=== PATIENT | male | born 1965 | race Hispanic/Latino ===

== ENCOUNTER 2017-12-15 05:47 | Day surgery (SDC) | payer MEDICARE ==
[2017-12-14 11:53] VITALS: BP 118/50
[2017-12-14 11:57] LABS: BASOPHILS % (AUTO) 1.7 % (0.0-5.0); EOSINOPHILS % (AUTO) 2.1 % (0.0-8.0); LYMPHOCYTES % (AUTO) 15.5 % (21.0-51.0); MEAN CORPUSCULAR HEMOGLOBIN 27.8 pg (27.0-33.0); MEAN CORPUSCULAR HGB CONC 32.8 g/dL (32.0-36.0); MEAN CORPUSCULAR VOLUME 84.7 fL (79-99); NEUTROPHILS % (AUTO) 73.7 % (40.0-77.0); PLATELET COUNT (AUTO) 262 K/uL (130-400); RED BLOOD CELL COUNT(AUTO) 4.49 MIL/uL (4.50-6.20); RED CELL DISTRIBUTION WIDTH 15.9 % (11.0-15.5)
[2017-12-14 12:09] LABS: POTASSIUM 4.3 mmol/L (3.5-5.1)
[2017-12-14 12:11] LABS: INR 0.98 (0.85-1.15); PARTIAL THROMBOPLASTIN TIME 30.9 SEC (26.3-35.5); PROTHROMBIN TIME 10.3 SEC (9.6-11.6)
[2017-12-14 12:20] LABS: CREATININE 9.2 mg/dL (0.5-1.5)
[2017-12-15] VITALS (8 sets, daily range): BP systolic 124–155; BP diastolic 57–85
[~2017-12-15] VITALS: Ht 175.3 cm; Wt 136.0 kg
[~2017-12-15 05:47] MED LIST: ALBU90AE IH; ASPI-555 PO; ATOR20TA65 PO; BISA5TAB12 PO; BUDE10.2 IH; CALC667C10 PO; CLOP75TA32 PO; FAMO20TA8 PO; FOLI1TAB85 PO; HYDR50CA50 PO; INSU100V3 SQ; INSU100V33 SQ; LOSA50TA25 PO; METO-408 PO; OLAN2.5T29 PO; OXCA300T28 PO; VENL-63 PO
[2017-12-15] MEDS ORDERED: CEFAZOLIN SODIUM 1 GM VIAL IVP PRN (06:00)
[2017-12-15] MEDS ORDERED: SODIUM CHLORIDE 0.9% 1000ML 1,000 ML IV ONE (06:13)
[2017-12-15] MEDS ORDERED: OXCARBAZEPINE 300 MG TAB PO SCH ×2 (07:00→07:30)
[2017-12-15] MEDS ORDERED: LIDOCAINE HCL 1% MDV 50ML VIAL ONE (07:13)
[2017-12-15] MEDS ORDERED: CEFAZOLIN SODIUM 1 GM VIAL ONE (07:13)
[2017-12-15] MEDS ORDERED: BUPIVACAINE/PF 0.25% 50ML VIAL IJ ONE (07:13)
[2017-12-15] MEDS ORDERED: PHARMACY COMMUNICATION MISC SCH (07:30)
[2017-12-15] MEDS ORDERED: MIDAZOLAM HCL 1 MG/ML 2ML VIAL ONE (07:40)
[2017-12-15] MEDS ORDERED: FENTANYL CITRATE PF 50 MCG/1 ML 2ML VIAL ONE (07:40)
[2017-12-15] MEDS ORDERED: OCTYL 2-CYANOACRYLATE 1 EACH TP ONE (08:02)
[2017-12-15] MEDS ORDERED: ACETAMINOPHEN 325 MG TAB PO PRN ×2 (08:30)
[2017-12-15] MEDS ORDERED: ACETAMINOPHEN-CODEINE 300/30MG TAB PO PRN ×2 (08:30)
== END 2017-12-15 10:50 | disposition home or self-care (01) ==
LOC: DAH 05:47
PROVIDERS: ATTEND Internal Medicine Cardiovascular Disease
DX: R55 Syncope and collapse (principal); E11.9 Type 2 diabetes mellitus without complications; E78.5 Hyperlipidemia, unspecified; Z79.82 Long term (current) use of aspirin; Z79.899 Other long term (current) drug therapy; Z88.8 Allergy status to other drugs, medicaments and biological substances
CPT/HCPCS: 33282; 36415; 80048; 82948; 85025; 85610; 85730; 93005; A4606; C1764; J0690; J2250; J3010; J3490 ×2; J7030; 99156; 99157

== ENCOUNTER 2018-01-16 13:51 | Inpatient (IN) | payer MEDICARE ==
[~2018-01-16] VITALS: Ht 172.7 cm; Wt 135.9 kg
[2018-01-16] MEDS ORDERED: ACETAMINOPHEN EXTRA STRENGTH 500 MG TABLET ONE (14:08)
[2018-01-16 14:26] LABS: BILIRUBIN,TOTAL 1.9 mg/dL (0.2-1.0)
[2018-01-16] MEDS ORDERED: ZOSYN 3.375GM+NS 50ML 50 ML IV ONE (14:32)
[2018-01-16 14:33] LABS: APPEARANCE,URINE Clear (CLEAR); BILIRUBIN,URINE Negative (NEGATIVE); COLOR,URINE Yellow (YELLOW); GLUCOSE, URINE (UA) 500 mg/dL (NEGATIVE); KETONES,URINE Negative (NEGATIVE); LEUKOCYTE ESTERASE ,URINE Trace (NEGATIVE); NITRATE,URINE Negative (NEGATIVE); OCCULT BLOOD,URINE Small (NEGATIVE); PH,URINE >=9.0 (5.0-8.0); PROTEIN,URINE 300 (NEGATIVE); UROBILINOGEN,URINE 0.2 mg/dL (0.2-1.0)
[2018-01-16 14:33] LABS: BASOPHILS % (AUTO) 0.5 % (0.0-5.0); EOSINOPHILS % (AUTO) 0.9 % (0.0-8.0); HEMATOCRIT 34.8 % (42-54); LYMPHOCYTES % (AUTO) 7.4 % (21.0-51.0); MEAN CORPUSCULAR HEMOGLOBIN 27.5 pg (27.0-33.0); MEAN CORPUSCULAR HGB CONC 33.3 g/dL (32.0-36.0); MEAN CORPUSCULAR VOLUME 82.5 fL (79-99); MONOCYTES % (AUTO) 6.4 % (3.0-13.0); NEUTROPHILS % (AUTO) 84.8 % (40.0-77.0); PLATELET COUNT (AUTO) 256 K/uL (130-400); RED BLOOD CELL COUNT(AUTO) 4.21 MIL/uL (4.50-6.20); RED CELL DISTRIBUTION WIDTH 15.7 % (11.0-15.5); WHITE BLOOD COUNT (AUTO) 21.7 K/uL (4.8-10.8)
[2018-01-16 14:44] LABS: INR 0.95 (0.85-1.15); PARTIAL THROMBOPLASTIN TIME 32.3 SEC (26.3-35.5)
[2018-01-16 14:44] LABS: BACTERIA,URINE Rare /HPF (None Seen); YEAST,URINE BUDDING Rare /HPF (None Seen)
[2018-01-16 14:47] LABS: ABG BASE EXCESS -0.3 mmol/L (-2.0-3.0); ABG HCO3 23.6 mmol/L (21.0-28.0); ABG OXYGEN SATURATION 88.9 % (95.0-99.0); ABG PCO2 36 mmHg (35-48)
[2018-01-16 14:49] LABS: ALANINE AMINOTRANSFERASE 27 U/L (12-78); ALBUMIN 3.7 g/dL (3.5-5.0); ASPARTATE AMINOTRANSFERASE 19 U/L (10-37); CARBON DIOXIDE 26 mmol/L (21-32); CHLORIDE 96 mmol/L (101-111); GLOMERULAR FILTR. RATE CALC 6 mL/min (>60); GLUCOSE,RANDOM 192 mg/dL (70-105); MYOGLOBIN 480 ng/mL (10-92); POTASSIUM 4.9 mmol/L (3.5-5.1); SODIUM SERUM 136 mmol/L (136-145); TOTAL PROTEIN, SERUM 7.8 g/dL (6.0-8.3); TROPONIN I < 0.04 ng/mL (0.00-0.06); UREA NITROGEN, BLOOD 55 mg/dL (7-18)
[2018-01-16 14:49] LABS: SQUAMOUS EPITHELIAL CELL,UR None Seen /HPF (0-2)
[2018-01-16 14:53] LABS: CREATINE KINASE, TOTAL 321 U/L (21-232)
[2018-01-16 14:54] LABS: CREATININE 9.2 mg/dL (0.5-1.5)
[2018-01-16] MEDS ORDERED: POTASSIUM CHLORIDE 20MEQ/100ML 100 ML IV PRN (16:30)
[2018-01-16] MEDS ORDERED: LIDOCAINE HCL-MPF 1% 2ML VIAL IJ PRN (16:30)
[2018-01-16] MEDS ORDERED: ONDANSETRON HCL 4 MG/2 ML VIAL IVP PRN (16:30)
[2018-01-16] MEDS ORDERED: MAG HYDROX/AL HYDROX/SIMETH ES 30 ML SUSP UDCUP PO PRN (16:30)
[2018-01-16] MEDS ORDERED: SODIUM CHLORIDE 0.9% 10 ML VIAL IVP SCH (16:30)
[2018-01-16] MEDS ORDERED: LACTULOSE 20 GM/30 ML UDCUP PO PRN (16:30)
[2018-01-16] MEDS ORDERED: DIPHENHYDRAMINE HCL 25 MG CAPSULE PO PRN (16:30)
[2018-01-16] MEDS ORDERED: POTASSIUM CHLORIDE 10% ELIXIR 20 MEQ/15 ML UDCUP PO PRN (16:30)
[2018-01-16] MEDS ORDERED: ACETAMINOPHEN 325 MG TAB PO PRN (16:30)
[2018-01-16] MEDS ORDERED: DiphenhydrAMINE HCL 50 MG/ML VIAL IVP PRN (16:30)
[2018-01-16] MEDS ORDERED: POTASSIUM CHLORIDE 20 MEQ ERTAB PO PRN (16:30)
[2018-01-16] MEDS ORDERED: NITROGLYCERIN 0.4 MG SL TAB SL PRN (16:30)
[2018-01-16] MEDS ORDERED: TETANUS/DIPHTHERIA TOXOID [ADULT] 0.5 ML VIAL IM ONE (18:20)
[2018-01-16 19:12] VITALS: BP 125/66
[2018-01-16] MEDS: VANCOMYCIN 1.5 GM in SODIUM CHLORIDE 0.9% 250 ML IV SCH (20:49)
[2018-01-16] MEDS: ZOSYN 3.375GM+NS 50ML 50 ML IV SCH (20:49)
[2018-01-16] MEDS: ACETAMINOPHEN 325 MG TAB PO PRN (20:50)
[2018-01-16] MEDS: FAMOTIDINE 20MG TAB 20 MG TAB PO SCH (20:50)
[2018-01-16 20:58] LABS: MAGNESIUM 2.1 mg/dL (1.80-2.40); PHOSPHORUS 4.9 mg/dL (2.5-4.9); THYROID STIMULATING HORMONE 0.6 uIU/mL (0.36-3.74)
[2018-01-16] MEDS: INSULIN R PO SSI SQ SCH ×2 (21:00→21:06)
[2018-01-16] MEDS ORDERED: PRAV20TA4 PO (23:23)
[2018-01-16] MEDS ORDERED: HYDROXYZINE HCL 25 MG TABLET PO PRN (23:45)
[2018-01-17] VITALS (7 sets, daily range): BP systolic 105–147; BP diastolic 52–99
[2018-01-17] MEDS ORDERED: VENL150T3 PO (00:12)
[2018-01-17 03:48] LABS: MEAN CORPUSCULAR HEMOGLOBIN 27.2 pg (27.0-33.0); MEAN CORPUSCULAR HGB CONC 32.5 g/dL (32.0-36.0); MEAN CORPUSCULAR VOLUME 83.5 fL (79-99); PLATELET COUNT (AUTO) 215 K/uL (130-400); RED BLOOD CELL COUNT(AUTO) 3.71 MIL/uL (4.50-6.20); RED CELL DISTRIBUTION WIDTH 15.3 % (11.0-15.5); WHITE BLOOD COUNT (AUTO) 23.1 K/uL (4.8-10.8)
[2018-01-17 03:50] LABS: POTASSIUM 4.6 mmol/L (3.5-5.1)
[2018-01-17 04:32] LABS: CREATININE 10.3 mg/dL (0.5-1.5)
[2018-01-17 05:01] LABS: BAND NEUTROPHILS % (MANUAL) 10 % (0-2); BASOPHILS % (MANUAL) 1 % (0-2); EOSINOPHILS % (MANUAL) 2 % (1-6); LYMPHOCYTES % (MANUAL) 7 % (22-44); MONOCYTES % (MANUAL) 12 % (2-9); SEGMENTED NEUTROPHILS % 68 % (40-70)
[2018-01-17 05:04] LABS: MAN.DIFF COMMENT-IMPRESSION MANUAL DIFFERENTIAL
[2018-01-17 05:06] LABS: PLATELET MORPHOLOGY COMMENT ADEQUATE
[2018-01-17] MEDS: INSULIN R PO SSI SQ SCH ×4 (05:56→20:55)
[2018-01-17] MEDS ORDERED: SODIUM CHLORIDE 0.9% 1000ML 2,000 ML IV ONE (06:51)
[2018-01-17] MEDS ORDERED: 0.9% SODIUM CHLORIDE 250 ML IV BAG IV PRN (07:30)
[2018-01-17] MEDS ORDERED: SODIUM CHLORIDE 0.9% 1000ML 1,000 ML IV PRN (07:30)
[2018-01-17] MEDS ORDERED: ALBUMIN (HUMAN) 25% 100 ML IV PRN (07:30)
[2018-01-17] MEDS: CALCIUM ACETATE 667 MG CAPSULE PO SCH ×3 (09:43→17:23)
[2018-01-17] MEDS: ACETAMINOPHEN 325 MG TAB PO PRN ×3 (09:43→20:49)
[2018-01-17] MEDS: OXCARBAZEPINE 300 MG TAB PO SCH ×2 (09:43→20:50)
[2018-01-17] MEDS: CLOPIDOGREL BISULFATE 75 MG TAB PO SCH (09:43)
[2018-01-17] MEDS: ZOSYN 3.375GM+NS 50ML 50 ML IV SCH ×2 (09:43→20:47)
[2018-01-17] MEDS: FOLIC ACID/VITAMIN B COMP W-C 1 MG CAPSULE PO SCH (09:43)
[2018-01-17] MEDS: FAMOTIDINE 20MG TAB 20 MG TAB PO SCH ×2 (09:44→20:50)
[2018-01-17] MEDS: ASPIRIN 81MG TAB.CHEW PO SCH (09:44)
[2018-01-17] MEDS: INSULIN HUMULIN 70/30 100 UNIT/ML 3ML SQ SCH ×2 (09:50→20:54)
[2018-01-17] MEDS: INSULIN LISPRO 100 UNIT/ML 3ML SQ SCH ×2 (11:37→17:23)
[2018-01-17] MEDS: VANCOMYCIN 1.5 GM in SODIUM CHLORIDE 0.9% 250 ML IV SCH (16:56)
[2018-01-17] MEDS: ***HM***Pravastatin Sodium 20 MG PO SCH (16:56)
[2018-01-17] MEDS: MORPHINE SULFATE 2 MG/ML 1ML SYG IVP PRN (18:32)
[2018-01-17] MEDS: VENLAFAXINE HCL XR 37.5 MG CAP PO SCH (20:48)
[2018-01-17] MEDS: LOSARTAN 50 MG TABLET PO SCH (20:50)
[2018-01-17] MEDS: OLANZAPINE ODT 5 MG TAB PO SCH (20:50)
[2018-01-17] MEDS: INSULIN GLARGINE 100 UNITS/ML 10 ML VIAL SQ SCH (20:55)
[2018-01-17] MEDS: ***HM***Metoprolol Succinate 25 MG PO SCH (21:00)
[2018-01-18] VITALS (21 sets, daily range): BP systolic 92–166; BP diastolic 32–89
[2018-01-18] MEDS: MORPHINE SULFATE 2 MG/ML 1ML SYG IVP PRN ×3 (00:26→20:28)
[2018-01-18 04:25] LABS: HEMATOCRIT 31.6 % (42-54); MEAN CORPUSCULAR HEMOGLOBIN 26.4 pg (27.0-33.0); MEAN CORPUSCULAR HGB CONC 31.9 g/dL (32.0-36.0); MEAN CORPUSCULAR VOLUME 82.8 fL (79-99); PLATELET COUNT (AUTO) 205 K/uL (130-400); RED BLOOD CELL COUNT(AUTO) 3.82 MIL/uL (4.50-6.20); RED CELL DISTRIBUTION WIDTH 15.7 % (11.0-15.5); WHITE BLOOD COUNT (AUTO) 19.1 K/uL (4.8-10.8)
[2018-01-18 04:44] LABS: ALBUMIN 2.8 g/dL (3.5-5.0); BILIRUBIN,TOTAL 0.6 mg/dL (0.2-1.0); PHOSPHORUS 6.4 mg/dL (2.5-4.9); POTASSIUM 4.1 mmol/L (3.5-5.1); TOTAL PROTEIN, SERUM 7.2 g/dL (6.0-8.3)
[2018-01-18 04:47] LABS: BAND NEUTROPHILS % (MANUAL) 7 % (0-2); BASOPHILS % (MANUAL) 1 % (0-2); EOSINOPHILS % (MANUAL) 3 % (1-6); LYMPHOCYTES % (MANUAL) 8 % (22-44); MONOCYTES % (MANUAL) 4 % (2-9); SEGMENTED NEUTROPHILS % 77 % (40-70)
[2018-01-18 04:48] LABS: MAN.DIFF COMMENT-IMPRESSION MANUAL DIFFERENTIAL; PLATELET MORPHOLOGY COMMENT ADEQUATE
[2018-01-18 04:50] LABS: CREATININE 8.6 mg/dL (0.5-1.5)
[2018-01-18 05:01] LABS: CRP QUANTITATIVE 405.4 mg/L (0.00-9.0)
[2018-01-18 05:34] LABS: ERYTHROCYTE SEDIMENTATION RATE 88 MM/HR (0-20)
[2018-01-18] MEDS ORDERED: BUPIVACAINE/PF 0.5% 30ML VIAL ONE (05:44)
[2018-01-18] MEDS ORDERED: LIDOCAINE HCL 1% 20 ML VIAL ONE (05:44)
[2018-01-18] MEDS: INSULIN R PO SSI SQ SCH ×4 (06:12→22:00)
[2018-01-18] MEDS ORDERED: ONDANSETRON HCL 4 MG/2 ML VIAL ONE (06:15)
[2018-01-18] MEDS ORDERED: DEXAMETHASONE SOD PHOSPHATE 10MG/ML 1ML VIAL ONE (06:15)
[2018-01-18] MEDS ORDERED: LIDOCAINE PF 2% 5ML ABBOJECT ONE (06:15)
[2018-01-18] MEDS ORDERED: FENTANYL CITRATE PF 50 MCG/1 ML 2ML VIAL ONE (06:16)
[2018-01-18] MEDS ORDERED: PROPOFOL 10 MG/ML 20ML VIAL IV ONE (06:16)
[2018-01-18] MEDS ORDERED: MIDAZOLAM HCL 1 MG/ML 2ML VIAL ONE (06:16)
[2018-01-18] MEDS: INSULIN LISPRO 100 UNIT/ML 3ML SQ SCH ×3 (07:16→17:08)
[2018-01-18] MEDS: CALCIUM ACETATE 667 MG CAPSULE PO SCH ×3 (07:16→17:07)
[2018-01-18] MEDS: CLOPIDOGREL BISULFATE 75 MG TAB PO SCH (08:46)
[2018-01-18] MEDS: ASPIRIN 81MG TAB.CHEW PO SCH (08:46)
[2018-01-18] MEDS: ZOSYN 3.375GM+NS 50ML 50 ML IV SCH ×2 (08:58→20:27)
[2018-01-18] MEDS: FOLIC ACID/VITAMIN B COMP W-C 1 MG CAPSULE PO SCH (08:58)
[2018-01-18] MEDS: FAMOTIDINE 20MG TAB 20 MG TAB PO SCH ×2 (08:59→20:29)
[2018-01-18] MEDS: OXCARBAZEPINE 300 MG TAB PO SCH ×2 (08:59→20:29)
[2018-01-18] MEDS: INSULIN HUMULIN 70/30 100 UNIT/ML 3ML SQ SCH ×2 (09:05→22:01)
[2018-01-18] MEDS ORDERED: IOHEXOL-350 75 ML VIAL IV ONE (09:41)
[2018-01-18] MEDS ORDERED: COMPOUND IV REFRIGERATED 1 EACH IVSOLN MISC PRN (10:15)
[2018-01-18] MEDS: ***HM***Pravastatin Sodium 20 MG PO SCH (17:00)
[2018-01-18] MEDS: PNEUMOCOCCAL VACCINE POLYVALENT 0.5 ML/VIAL [PPV] IM SCH (18:07)
[2018-01-18] MEDS: SODIUM CHLORIDE 0.9% 1000ML 1,000 ML IV SCH (19:49)
[2018-01-18] MEDS ORDERED: DiphenhydrAMINE HCL 50 MG/ML VIAL IVP PRN (20:00)
[2018-01-18 20:14] LABS: HEMATOCRIT 30.9 % (42-54); MEAN CORPUSCULAR HEMOGLOBIN 26.5 pg (27.0-33.0); MEAN CORPUSCULAR VOLUME 82.9 fL (79-99); PLATELET COUNT (AUTO) 212 K/uL (130-400); RED BLOOD CELL COUNT(AUTO) 3.72 MIL/uL (4.50-6.20); RED CELL DISTRIBUTION WIDTH 15.5 % (11.0-15.5); WHITE BLOOD COUNT (AUTO) 15.7 K/uL (4.8-10.8)
[2018-01-18 20:24] LABS: POTASSIUM 4.4 mmol/L (3.5-5.1)
[2018-01-18 20:25] LABS: INR 0.96 (0.85-1.15); PARTIAL THROMBOPLASTIN TIME 37.3 SEC (26.3-35.5); PROTHROMBIN TIME 10.1 SEC (9.6-11.6)
[2018-01-18] MEDS: LOSARTAN 50 MG TABLET PO SCH (20:28)
[2018-01-18] MEDS: OLANZAPINE ODT 5 MG TAB PO SCH (20:29)
[2018-01-18] MEDS: VENLAFAXINE HCL XR 37.5 MG CAP PO SCH (20:29)
[2018-01-18 20:30] LABS: CREATININE 9.9 mg/dL (0.5-1.5)
[2018-01-18] MEDS: ***HM***Metoprolol Succinate 25 MG PO SCH (21:00)
[2018-01-18] MEDS: INSULIN GLARGINE 100 UNITS/ML 10 ML VIAL SQ SCH (22:02)
[2018-01-19] VITALS (11 sets, daily range): BP systolic 109–147; BP diastolic 58–78
[2018-01-19] MEDS: MORPHINE SULFATE 2 MG/ML 1ML SYG IVP PRN ×2 (03:19→13:06)
[2018-01-19 04:48] LABS: HEMATOCRIT 28.6 % (42-54); MEAN CORPUSCULAR HEMOGLOBIN 27.5 pg (27.0-33.0); MEAN CORPUSCULAR HGB CONC 33.1 g/dL (32.0-36.0); MEAN CORPUSCULAR VOLUME 82.9 fL (79-99); PLATELET COUNT (AUTO) 229 K/uL (130-400); RED BLOOD CELL COUNT(AUTO) 3.45 MIL/uL (4.50-6.20); RED CELL DISTRIBUTION WIDTH 15.2 % (11.0-15.5)
[2018-01-19 05:03] LABS: POTASSIUM 4.1 mmol/L (3.5-5.1)
[2018-01-19 05:05] LABS: CREATININE 10.4 mg/dL (0.5-1.5)
[2018-01-19] MEDS: SODIUM CHLORIDE 0.9% 1000ML 1,000 ML IV SCH ×2 (05:49→15:23)
[2018-01-19] MEDS: INSULIN LISPRO 100 UNIT/ML 3ML SQ SCH ×3 (07:06→16:55)
[2018-01-19] MEDS: INSULIN R PO SSI SQ SCH ×4 (07:07→22:17)
[2018-01-19] MEDS: PNEUMOCOCCAL VACCINE POLYVALENT 0.5 ML/VIAL [PPV] IM SCH (07:11)
[2018-01-19] MEDS: CALCIUM ACETATE 667 MG CAPSULE PO SCH ×3 (07:18→16:55)
[2018-01-19] MEDS: FOLIC ACID/VITAMIN B COMP W-C 1 MG CAPSULE PO SCH (07:19)
[2018-01-19] MEDS: OXCARBAZEPINE 300 MG TAB PO SCH ×2 (07:19→21:39)
[2018-01-19] MEDS: CLOPIDOGREL BISULFATE 75 MG TAB PO SCH (07:19)
[2018-01-19] MEDS: ASPIRIN 81MG TAB.CHEW PO SCH (07:19)
[2018-01-19] MEDS: FAMOTIDINE 20MG TAB 20 MG TAB PO SCH ×2 (07:19→21:38)
[2018-01-19] MEDS: INSULIN HUMULIN 70/30 100 UNIT/ML 3ML SQ SCH ×2 (07:19→21:48)
[2018-01-19] MEDS: ZOSYN 3.375GM+NS 50ML 50 ML IV SCH ×2 (07:26→21:37)
[2018-01-19] MEDS ORDERED: IODIXANOL 320 MG/ML 100 ML VIAL ONE (14:23)
[2018-01-19] MEDS ORDERED: NITROGLYCERIN 5 MG/ML 10 ML VIAL IV ONE (14:23)
[2018-01-19] MEDS ORDERED: FENTANYL CITRATE PF 50 MCG/1 ML 2ML VIAL ONE (14:23)
[2018-01-19] MEDS ORDERED: LIDOCAINE HCL 2% 20ML ONE (14:23)
[2018-01-19] MEDS ORDERED: MIDAZOLAM HCL 1 MG/ML 2ML VIAL ONE (14:23)
[2018-01-19] MEDS ORDERED: HEPARIN SODIUM 1000UNIT/ML 10ML VIAL ONE ×2 (14:32→15:13)
[2018-01-19] MEDS ORDERED: SODIUM CHLORIDE 0.9% 1000ML 1,000 ML IV SCH (15:08)
[2018-01-19] MEDS: ***HM***Pravastatin Sodium 20 MG PO SCH (16:47)
[2018-01-19] MEDS: ***HM***Metoprolol Succinate 25 MG PO SCH (21:00)
[2018-01-19] MEDS: OLANZAPINE ODT 5 MG TAB PO SCH (21:38)
[2018-01-19] MEDS: VENLAFAXINE HCL XR 37.5 MG CAP PO SCH (21:39)
[2018-01-19] MEDS: LOSARTAN 50 MG TABLET PO SCH (21:39)
[2018-01-19] MEDS: INSULIN GLARGINE 100 UNITS/ML 10 ML VIAL SQ SCH (21:49)
[2018-01-19] MEDS: EPOETIN ALFA 10,000 UNIT/ML VIAL SQ SCH (22:15)
[2018-01-20] VITALS: BP 120/67
[2018-01-20 04:00] VITALS: BP 130/64
[2018-01-20 05:25] LABS: HEMATOCRIT 29.3 % (42-54); MEAN CORPUSCULAR HEMOGLOBIN 27.2 pg (27.0-33.0); MEAN CORPUSCULAR HGB CONC 33.4 g/dL (32.0-36.0); MEAN CORPUSCULAR VOLUME 81.5 fL (79-99); PLATELET COUNT (AUTO) 257 K/uL (130-400); RED BLOOD CELL COUNT(AUTO) 3.59 MIL/uL (4.50-6.20); RED CELL DISTRIBUTION WIDTH 15.2 % (11.0-15.5); WHITE BLOOD COUNT (AUTO) 11.6 K/uL (4.8-10.8)
[2018-01-20 05:37] LABS: POTASSIUM 4.4 mmol/L (3.5-5.1)
[2018-01-20 05:44] LABS: CREATININE 8.8 mg/dL (0.5-1.5)
[2018-01-20 05:46] LABS: CRP QUANTITATIVE 227.2 mg/L (0.00-9.0)
[2018-01-20] MEDS: INSULIN R PO SSI SQ SCH ×3 (07:27→16:30)
[2018-01-20] MEDS: INSULIN LISPRO 100 UNIT/ML 3ML SQ SCH ×3 (07:27→16:45)
[2018-01-20] MEDS: INSULIN HUMULIN 70/30 100 UNIT/ML 3ML SQ SCH (07:28)
[2018-01-20] MEDS: ASPIRIN 81MG TAB.CHEW PO SCH (07:37)
[2018-01-20] MEDS: OXCARBAZEPINE 300 MG TAB PO SCH (07:37)
[2018-01-20] MEDS: FAMOTIDINE 20MG TAB 20 MG TAB PO SCH (07:37)
[2018-01-20] MEDS: CALCIUM ACETATE 667 MG CAPSULE PO SCH ×2 (07:37→12:16)
[2018-01-20] MEDS: CLOPIDOGREL BISULFATE 75 MG TAB PO SCH (07:37)
[2018-01-20] MEDS: FOLIC ACID/VITAMIN B COMP W-C 1 MG CAPSULE PO SCH (07:37)
[2018-01-20] MEDS: ZOSYN 3.375GM+NS 50ML 50 ML IV SCH (07:38)
[2018-01-20 07:47] VITALS: BP 124/58
[2018-01-20] MEDS ORDERED: METOPROLOL TARTRATE 25 MG TAB PO SCH (09:00)
[2018-01-20 11:02] VITALS: BP 105/69
[2018-01-20] MEDS: EPOETIN ALFA 10,000 UNIT/ML VIAL SQ SCH (12:16)
[2018-01-20 15:57] VITALS: BP 146/56
== END 2018-01-20 17:00 | DRG 853 ==
LOC: EDH 13:51 → EDHIP 16:05 → 2DH 18:20
PROVIDERS: ADMIT Family Medicine; ATTEND Family Medicine
PROC: 0JBR0ZZ Excision of Left Foot Subcutaneous Tissue and Fascia, Open Approach (ICD-10-PCS; 2018-01-16)
PROC: 5A1D70Z Performance of Urinary Filtration, Intermittent, Less than 6 Hours Per Day (ICD-10-PCS; 2018-01-17)
PROC: 5A1D70Z Performance of Urinary Filtration, Intermittent, Less than 6 Hours Per Day (ICD-10-PCS; 2018-01-17)
PROC: B41D1ZZ Fluoroscopy of Aorta and Bilateral Lower Extremity Arteries using Low Osmolar Contrast (ICD-10-PCS; principal; 2018-01-19)
DX: A41.9 Sepsis, unspecified organism (principal); N18.6 End stage renal disease; I21.9 Acute myocardial infarction, unspecified; I12.0 Hypertensive chronic kidney disease with stage 5 chronic kidney disease or end stage renal disease; L03.116 Cellulitis of left lower limb; L02.612 Cutaneous abscess of left foot; Z68.42 Body mass index [BMI] 45.0-49.9, adult; E66.01 Morbid (severe) obesity due to excess calories; E78.5 Hyperlipidemia, unspecified; F17.210 Nicotine dependence, cigarettes, uncomplicated; D89.9 Disorder involving the immune mechanism, unspecified; E11.22 Type 2 diabetes mellitus with diabetic chronic kidney disease; E11.51 Type 2 diabetes mellitus with diabetic peripheral angiopathy without gangrene; I25.10 Atherosclerotic heart disease of native coronary artery without angina pectoris; L97.529 Non-pressure chronic ulcer of other part of left foot with unspecified severity; E11.621 Type 2 diabetes mellitus with foot ulcer; E11.65 Type 2 diabetes mellitus with hyperglycemia; K59.00 Constipation, unspecified; G47.00 Insomnia, unspecified; E11.21 Type 2 diabetes mellitus with diabetic nephropathy; Z79.4 Long term (current) use of insulin; D64.9 Anemia, unspecified; Z99.2 Dependence on renal dialysis; Z95.1 Presence of aortocoronary bypass graft; Z82.5 Family history of asthma and other chronic lower respiratory diseases; Z83.3 Family history of diabetes mellitus; Z82.0 Family history of epilepsy and other diseases of the nervous system; Z82.49 Family history of ischemic heart disease and other diseases of the circulatory system; Z82.3 Family history of stroke; Z91.11 Patient's noncompliance with dietary regimen
CPT/HCPCS: 36247; 36415; 36600; 71045; 73630; 73701; 75710; 80048; 80053; 80202; 81001; 82435; 82550; 82803; 82947; 82948; 83036; 83605; 83735; 83874; 84100; 84132; 84295; 84443; 84484; 85018; 85025; 85027; 85610; 85651; 85730; 86140; 87040; 87070; 87076; 87088; 87205; 90714; 90732; 90935; 93005; 93925; 99156; 99157; C1760; C1769; C1894; J0885; J1100; J1200; J1644; J1815; J2001; J2250; J2405; J2543; J2704; J3010; J3370; J3490; J7030; Q9967

== ENCOUNTER 2018-03-09 20:30 | Emergency (ER) | payer MEDICARE ==
[~2018-03-09 20:30] MED LIST changes: -ALBU90AE IH; -ATOR20TA65 PO; -BISA5TAB12 PO; +DOCU-275 PO; -FAMO20TA8 PO; +FERR324T4 PO; +HUM10VIA SQ; -INSU100V3 SQ; -INSU100V33 SQ; -LOSA50TA25 PO; +LOSA50TA64 PO; +PRAV20TA4 PO; +SULF1TAB3 PO; -VENL-63 PO; +VENL150T3 PO
[2018-03-09] MEDS ORDERED: SILVER NITRATE APPLICATOR 1 SWAB TP ONE (20:49)
[2018-03-09] MEDS ORDERED: LIDOCAINE 1%-EPI 1:100,000 20 ML VIAL IJ ONE (20:59)
[2018-03-09] MEDS ORDERED: HYDROCODONE/ACETAMINOPHEN 10/325 MG TAB ONE (21:59)
== END 2018-03-09 22:26 | disposition home or self-care (01) ==
LOC: EDH 20:30
DX: L76.22 Postprocedural hemorrhage of skin and subcutaneous tissue following other procedure (principal); I12.0 Hypertensive chronic kidney disease with stage 5 chronic kidney disease or end stage renal disease; N18.6 End stage renal disease; E11.9 Type 2 diabetes mellitus without complications; I25.810 Atherosclerosis of coronary artery bypass graft(s) without angina pectoris; E78.5 Hyperlipidemia, unspecified; Z90.89 Acquired absence of other organs; Z99.2 Dependence on renal dialysis; Z72.0 Tobacco use; Z79.4 Long term (current) use of insulin; Z88.1 Allergy status to other antibiotic agents; Z88.6 Allergy status to analgesic agent
CPT/HCPCS: 99282; J3490

== ENCOUNTER 2018-08-04 03:52 | Emergency (ER) | payer MEDICARE ==
[2018-08-04 04:27] LABS: BASOPHILS % (AUTO) 0.6 % (0.0-5.0); LYMPHOCYTES % (AUTO) 11.9 % (21.0-51.0); MEAN CORPUSCULAR HEMOGLOBIN 26.3 pg (27.0-33.0); MEAN CORPUSCULAR HGB CONC 32.5 g/dL (32.0-36.0); MONOCYTES % (AUTO) 9.1 % (3.0-13.0); NEUTROPHILS % (AUTO) 76.4 % (40.0-77.0); PLATELET COUNT (AUTO) 259 K/uL (130-400); RED BLOOD CELL COUNT(AUTO) 4.69 MIL/uL (4.50-6.20); RED CELL DISTRIBUTION WIDTH 16.2 % (11.0-15.5); WHITE BLOOD COUNT (AUTO) 11.6 K/uL (4.8-10.8)
[2018-08-04 04:38] LABS: POTASSIUM 3.2 mmol/L (3.5-5.1)
[2018-08-04 04:41] LABS: CREATININE 7.9 mg/dL (0.5-1.5)
[2018-08-04 04:50] LABS: ALBUMIN 3.8 g/dL (3.5-5.0); BILIRUBIN,TOTAL 0.6 mg/dL (0.2-1.0); TOTAL PROTEIN, SERUM 7.9 g/dL (6.0-8.3)
[2018-08-04] MEDS ORDERED: SODIUM CHLORIDE 0.9% 500ML 500 ML IV ONE (04:56)
== END 2018-08-04 07:05 | disposition home or self-care (01) ==
LOC: EDH 03:52
DX: E86.9 Volume depletion, unspecified (principal); R61 Generalized hyperhidrosis; T38.3X5A Adverse effect of insulin and oral hypoglycemic [antidiabetic] drugs, initial encounter; I12.0 Hypertensive chronic kidney disease with stage 5 chronic kidney disease or end stage renal disease; E11.22 Type 2 diabetes mellitus with diabetic chronic kidney disease; N18.6 End stage renal disease; Z99.2 Dependence on renal dialysis; Z79.4 Long term (current) use of insulin; I25.10 Atherosclerotic heart disease of native coronary artery without angina pectoris; E78.5 Hyperlipidemia, unspecified; Z86.73 Personal history of transient ischemic attack (TIA), and cerebral infarction without residual deficits; Z95.1 Presence of aortocoronary bypass graft; Z90.89 Acquired absence of other organs; Z72.0 Tobacco use; Z88.1 Allergy status to other antibiotic agents; Z88.8 Allergy status to other drugs, medicaments and biological substances; Y92.89 Other specified places as the place of occurrence of the external cause
CPT/HCPCS: 36415; 80053; 82550; 82948 ×2; 83605; 85025; 99285; J7040

== ENCOUNTER 2018-09-26 17:31 | Inpatient (IN) | payer MEDICARE ==
[~2018-09-26] VITALS: Ht 172.7 cm; Wt 131.5 kg
[2018-09-26 18:29] LABS: INR 1.03 (0.85-1.15); PROTHROMBIN TIME 10.8 SEC (9.6-11.6)
[2018-09-26 18:39] LABS: PARTIAL THROMBOPLASTIN TIME 33.6 SEC (26.3-35.5)
[2018-09-26 18:44] LABS: CREATININE 7.7 mg/dL (0.5-1.5); POTASSIUM 4.2 mmol/L (3.5-5.1)
[2018-09-26 18:49] LABS: BILIRUBIN,TOTAL 0.4 mg/dL (0.2-1.0); TOTAL PROTEIN, SERUM 7.8 g/dL (6.0-8.3)
[2018-09-26 18:58] LABS: CRP QUANTITATIVE 333.8 mg/L (0.00-9.0)
[2018-09-26] MEDS ORDERED: TRAMADOL HCL 50 MG TABLET ONE (19:27)
[2018-09-26] MEDS ORDERED: ZOSYN 3.375GM+NS 50ML 50 ML IV ONE ×2 (19:27→19:31)
[2018-09-26] MEDS ORDERED: VANCOMYCIN 1GM+NS 250ML 0 ML IV ONE (19:31)
[2018-09-26] MEDS ORDERED: VANCOMYCIN 2.5 GM in SODIUM CHLORIDE 0.9% 500ML 500 ML IV ONE (19:45)
[2018-09-26 19:57] LABS: EOSINOPHILS % (AUTO) 1.2 % (0.0-8.0); HEMATOCRIT 35.5 % (42-54); LYMPHOCYTES % (AUTO) 8.9 % (21.0-51.0); MEAN CORPUSCULAR HEMOGLOBIN 26.6 pg (27.0-33.0); MEAN CORPUSCULAR HGB CONC 32.9 g/dL (32.0-36.0); MEAN CORPUSCULAR VOLUME 80.9 fL (79-99); MONOCYTES % (AUTO) 13.6 % (3.0-13.0); NEUTROPHILS % (AUTO) 75.8 % (40.0-77.0); RED BLOOD CELL COUNT(AUTO) 4.38 MIL/uL (4.50-6.20); RED CELL DISTRIBUTION WIDTH 15.9 % (11.0-15.5); WHITE BLOOD COUNT (AUTO) 16.5 K/uL (4.8-10.8)
[2018-09-26 19:58] LABS: BASOPHILS % (AUTO) 0.5 % (0.0-5.0); PLATELET COUNT (AUTO) 212 K/uL (130-400)
[2018-09-26] MEDS ORDERED: VANCOMYCIN PROTOCOL PER PHARMACY IV PRN (21:15)
[2018-09-26] MEDS ORDERED: ACETAMINOPHEN 325 MG TAB PO PRN ×2 (21:15)
[2018-09-26] MEDS ORDERED: ONDANSETRON HCL 4 MG/2 ML VIAL IV PRN (21:15)
[2018-09-26] MEDS ORDERED: MORPHINE SULFATE 2 MG/ML 1ML SYG ONE (22:48)
[2018-09-27] VITALS (18 sets, daily range): BP systolic 101–139; BP diastolic 37–76
[2018-09-27] MEDS: MORPHINE SULFATE 4 MG/1ML SYG IV PRN ×2 (03:07→07:39)
[2018-09-27 05:53] LABS: BASOPHILS % (AUTO) 0.6 % (0.0-5.0); EOSINOPHILS % (AUTO) 2.1 % (0.0-8.0); HEMATOCRIT 33.8 % (42-54); MEAN CORPUSCULAR HEMOGLOBIN 26.4 pg (27.0-33.0); MEAN CORPUSCULAR HGB CONC 32.3 g/dL (32.0-36.0); MEAN CORPUSCULAR VOLUME 81.9 fL (79-99); MONOCYTES % (AUTO) 13.4 % (3.0-13.0); NEUTROPHILS % (AUTO) 73.9 % (40.0-77.0); PLATELET COUNT (AUTO) 234 K/uL (130-400); RED BLOOD CELL COUNT(AUTO) 4.13 MIL/uL (4.50-6.20); RED CELL DISTRIBUTION WIDTH 16.4 % (11.0-15.5); WHITE BLOOD COUNT (AUTO) 13.9 K/uL (4.8-10.8)
[2018-09-27 06:47] LABS: POTASSIUM 4.1 mmol/L (3.5-5.1)
--- NOTE | 2018-09-27 07:20 | NUR ---
RECEIVED IN BED ALERT AND AWAKE ON ROOM AIR WITH REGULAR RESPIRATION AND NO ACUTE DISTRESS. VOICED ACTIVE PAIN TO THE LEFT FOOT. WILL MEDICATE APPROPRIATELY.
[2018-09-27] MEDS: FAMOTIDINE/PF 20 MG/2 ML VIAL IV SCH (07:39)
[2018-09-27] MEDS: ZOSYN 3.375GM+NS 50ML 50 ML IV SCH ×2 (07:40→20:07)
--- NOTE | 2018-09-27 08:39 | NUR ---
RESTING COMFORTABLY WITH EYES CLOSED.
--- NOTE | 2018-09-27 10:40 | NUR ---
TAKEN TO MRI BY TRANSPORTER VIA WHEELCHAIR.
--- NOTE | 2018-09-27 11:00 | NUR ---
DCP CM met with pt discussed dc plans. Pt is independent prior to admission, lives at home alone, sister lives close by. Pt has a walker, goes to [facility] dialysis center MWF @1047. Denies any other equipments/services. Pt feels safe to go back home, still drives, sister able to assist with transportation and needs as necessary. Pt agreeable for placement if MD recommends, HARRISON signed for [facility]. DC plan to [facility]. CM to cont to follow up. Addendum: 09/27/18 at 1531 by CHRIS MUNROE LVN CM Amended: Links added.
[2018-09-27] MEDS: MORPHINE SULFATE 2 MG/ML 1ML SYG IV PRN ×2 (11:42→20:15)
[2018-09-27] MEDS ORDERED: BISA5TAB12 PO (11:55)
--- NOTE | 2018-09-27 13:34 | NUR ---
DR SHARMA CAME IN TO SEE THE PATIENT AND GAVE ORDERS FOR HEMODIALYSIS TOMORROW. HD NURSE RAMAKRISHNA WAS NOTIFIED. ACUTE HEP PANEL WAS ORDERED PER PROTOCOL.
[2018-09-27] MEDS ORDERED: HYDROXYZINE HCL 25 MG TABLET PO PRN (14:15)
--- NOTE | 2018-09-27 14:36 | NUR ---
TAKEN TO OR VIA BED IN STABLE CONDITION.
[2018-09-27] MEDS ORDERED: MIDAZOLAM HCL 1 MG/ML 2ML VIAL ONE (14:52)
[2018-09-27] MEDS ORDERED: PROPOFOL 10 MG/ML 20ML VIAL IV ONE ×2 (14:53)
[2018-09-27] MEDS ORDERED: LIDOCAINE PF 2% 5ML ABBOJECT ONE (14:53)
[2018-09-27] MEDS ORDERED: BUPIVACAINE/PF 0.5% 10ML VIAL ONE (14:57)
[2018-09-27] MEDS ORDERED: LIDOCAINE HCL 1% MDV 50ML VIAL ONE (14:58)
--- NOTE | 2018-09-27 15:32 | NUR ---
CM Note: [facility] pending acceptance Spoke to Kadi w/[facility], received order and clinicals, will come eval pt after surgery. MOT semi-filled flagged in chart pending to be completed once pt has approval. EMS filled out, flagged in chart, pending to be faxed w/current date once pt ready to DC, primary nurse to call [facility] once pt ready. Primary nurse aware. CM to cont to follow up.
--- NOTE | 2018-09-27 16:43 | NUR ---
RETURNED FROM SURGERY ALERT AND DROWSY, WITH STABLE VITAL SIGNS. LEFT FOOT IS WITH WOUND VAC DRESSING ON, RAISED ON A PILLOW. BLOODY DRAINAGE OBSERVED IN THE CANISTER. WILL CONTINUE TO MONITOR.
[2018-09-27] MEDS: CALCIUM ACETATE 667 MG CAPSULE PO SCH (17:46)
[2018-09-27] MEDS: OLANZAPINE 5 MG TAB PO SCH (20:06)
[2018-09-27] MEDS: OXCARBAZEPINE 300 MG TAB PO SCH (20:06)
[2018-09-27] MEDS: LOSARTAN 50 MG TABLET PO SCH (20:07)
[2018-09-27] MEDS: Pravastatin Sodium 20 MG PO SCH (21:00)
[2018-09-27] MEDS: Metoprolol Succinate 25 MG PO SCH (21:00)
[2018-09-27] MEDS: VENLAFAXINE HCL XR 150 MG CAP PO SCH (21:00)
[2018-09-28] MEDS: MORPHINE SULFATE 2 MG/ML 1ML SYG IV PRN ×5 (00:12→20:35)
[2018-09-28 03:10] VITALS: BP 130/72
[2018-09-28 06:17] LABS: BASOPHILS % (AUTO) 0.6 % (0.0-5.0); HEMATOCRIT 31.9 % (42-54); LYMPHOCYTES % (AUTO) 10.3 % (21.0-51.0); MEAN CORPUSCULAR HGB CONC 32.9 g/dL (32.0-36.0); MEAN CORPUSCULAR VOLUME 82.2 fL (79-99); NEUTROPHILS % (AUTO) 74.1 % (40.0-77.0); PLATELET COUNT (AUTO) 224 K/uL (130-400); RED BLOOD CELL COUNT(AUTO) 3.89 MIL/uL (4.50-6.20); RED CELL DISTRIBUTION WIDTH 16.2 % (11.0-15.5); WHITE BLOOD COUNT (AUTO) 12.6 K/uL (4.8-10.8)
[2018-09-28 06:25] LABS: POTASSIUM 5.2 mmol/L (3.5-5.1)
[2018-09-28 06:42] LABS: CREATININE 10.7 mg/dL (0.5-1.5)
[2018-09-28] MEDS ORDERED: SODIUM CHLORIDE 0.9% 1000ML 2,000 ML IV ONE (06:51)
--- NOTE | 2018-09-28 07:05 | NUR ---
HD NURSE IS HERE TO START TREATMENT. PATIENT IS ALERT AND STABLE, WOUND VAC IN PROGRESS.
[2018-09-28 08:00] VITALS: BP 107/59
[2018-09-28] MEDS: CALCIUM ACETATE 667 MG CAPSULE PO SCH ×3 (09:14→17:18)
[2018-09-28] MEDS: BISACODYL 5 MG TABLET.DR PO SCH (09:25)
[2018-09-28] MEDS: OXCARBAZEPINE 300 MG TAB PO SCH ×2 (09:25→20:36)
[2018-09-28] MEDS: ASPIRIN 81 MG EC TAB PO SCH (09:25)
[2018-09-28] MEDS: FOLIC ACID/VITAMIN B COMP W-C 1 MG CAP/TAB PO SCH (09:26)
[2018-09-28] MEDS: CLOPIDOGREL BISULFATE 75 MG TAB PO SCH (09:26)
[2018-09-28] MEDS: FAMOTIDINE/PF 20 MG/2 ML VIAL IV SCH (11:13)
[2018-09-28] MEDS: ZOSYN 3.375GM+NS 50ML 50 ML IV SCH ×2 (11:13→20:33)
[2018-09-28 12:00] VITALS: BP 113/65
[2018-09-28] MEDS ORDERED: VANCOMYCIN 1GM+NS 250ML 250 ML IV SCH (15:00)
[2018-09-28 16:00] VITALS: BP 110/64
[2018-09-28 20:00] VITALS: BP 114/63
[2018-09-28] MEDS: LOSARTAN 50 MG TABLET PO SCH (20:35)
[2018-09-28] MEDS: INSULIN HUMULIN R 100 UNIT/ML 3ML SQ SCH (20:36)
[2018-09-28] MEDS: OLANZAPINE 5 MG TAB PO SCH (20:36)
[2018-09-28] MEDS: Metoprolol Succinate 25 MG PO SCH (20:36)
[2018-09-28] MEDS: Pravastatin Sodium 20 MG PO SCH (20:36)
[2018-09-28] MEDS: VENLAFAXINE HCL XR 150 MG CAP PO SCH (20:36)
[2018-09-29] VITALS: BP 114/58
[2018-09-29] MEDS: MORPHINE SULFATE 2 MG/ML 1ML SYG IV PRN ×5 (00:52→21:29)
[2018-09-29 04:00] VITALS: BP 103/50
[2018-09-29] MEDS: INSULIN HUMULIN R 100 UNIT/ML 3ML SQ SCH ×4 (06:40→21:00)
[2018-09-29 06:49] LABS: HEMATOCRIT 29.9 % (42-54); MEAN CORPUSCULAR HEMOGLOBIN 27.5 pg (27.0-33.0); MEAN CORPUSCULAR HGB CONC 33.6 g/dL (32.0-36.0); MEAN CORPUSCULAR VOLUME 81.9 fL (79-99); PLATELET COUNT (AUTO) 248 K/uL (130-400); RED BLOOD CELL COUNT(AUTO) 3.65 MIL/uL (4.50-6.20); WHITE BLOOD COUNT (AUTO) 9.2 K/uL (4.8-10.8)
[2018-09-29 06:58] LABS: PHOSPHORUS 7.3 mg/dL (2.5-4.9); POTASSIUM 4.3 mmol/L (3.5-5.1)
[2018-09-29 07:00] VITALS: BP 117/63
[2018-09-29 07:02] LABS: CREATININE 9.3 mg/dL (0.5-1.5)
[2018-09-29 07:15] LABS: HEPATITIS A ANTIBODY IGM Negative (Negative); HEPATITIS B CORE IGM Negative (Negative); HEPATITIS Bs ANTIGEN SCREEN P Negative (Negative)
[2018-09-29 07:57] LABS: BAND NEUTROPHILS % (MANUAL) 8 % (0-2); BASOPHILS % (MANUAL) 1 % (0-2); EOSINOPHILS % (MANUAL) 8 % (1-6); LYMPHOCYTES % (MANUAL) 16 % (22-44); MAN.DIFF COMMENT-IMPRESSION MANUAL DIFFERENTIAL; MONOCYTES % (MANUAL) 12 % (2-9); PLATELET MORPHOLOGY COMMENT ADEQUATE; REACTIVE LYMPHOCYTES 1 % (0-0); SEGMENTED NEUTROPHILS % 54 % (40-70)
[2018-09-29] MEDS: FOLIC ACID/VITAMIN B COMP W-C 1 MG CAP/TAB PO SCH (08:55)
[2018-09-29] MEDS: FAMOTIDINE/PF 20 MG/2 ML VIAL IV SCH (08:56)
[2018-09-29] MEDS: ASPIRIN 81 MG EC TAB PO SCH (08:56)
[2018-09-29] MEDS: BISACODYL 5 MG TABLET.DR PO SCH (08:56)
[2018-09-29] MEDS: CALCIUM ACETATE 667 MG CAPSULE PO SCH ×3 (08:56→16:45)
[2018-09-29] MEDS: OXCARBAZEPINE 300 MG TAB PO SCH ×2 (08:56→21:15)
[2018-09-29] MEDS: ZOSYN 3.375GM+NS 50ML 50 ML IV SCH ×2 (08:56→21:14)
[2018-09-29] MEDS: CLOPIDOGREL BISULFATE 75 MG TAB PO SCH (08:56)
--- NOTE | 2018-09-29 10:23 | NUR ---
CM Note: [facility] acceptance Spoke to Kadi West, pt has acceptance. MOT filled out, pending for and isabel welsh to sign. EMS faxed and arranged for today, primary nurse to call [facility] once pt ready to DC. Primary nurse aware. CM to cont to follow up.
[2018-09-29 11:00] VITALS: BP 123/65
[2018-09-29 16:00] VITALS: BP 131/70
[2018-09-29] MEDS: LACTULOSE 20 GM/30 ML UDCUP PO PRN ×2 (16:45→21:15)
--- NOTE | 2018-09-29 17:00 | NUR ---
spoke with Patricia from Dr. Wong for consult. Patricia to relay message to
[2018-09-29 19:53] VITALS: BP 139/84
[2018-09-29] MEDS: Pravastatin Sodium 20 MG PO SCH (21:00)
[2018-09-29] MEDS: OLANZAPINE 5 MG TAB PO SCH (21:15)
[2018-09-29] MEDS: LOSARTAN 50 MG TABLET PO SCH (21:15)
[2018-09-29] MEDS: VENLAFAXINE HCL XR 150 MG CAP PO SCH (21:17)
[2018-09-29] MEDS: Metoprolol Succinate 25 MG PO SCH (21:17)
[2018-09-30] VITALS: BP 137/71
[2018-09-30] MEDS: MORPHINE SULFATE 2 MG/ML 1ML SYG IV PRN ×3 (01:38→13:48)
[2018-09-30 04:00] VITALS: BP 135/73
[2018-09-30 05:02] LABS: HEMATOCRIT 31.8 % (42-54); MEAN CORPUSCULAR HEMOGLOBIN 26.6 pg (27.0-33.0); MEAN CORPUSCULAR HGB CONC 32.4 g/dL (32.0-36.0); MEAN CORPUSCULAR VOLUME 82.3 fL (79-99); PLATELET COUNT (AUTO) 241 K/uL (130-400); RED BLOOD CELL COUNT(AUTO) 3.86 MIL/uL (4.50-6.20); RED CELL DISTRIBUTION WIDTH 16.2 % (11.0-15.5)
[2018-09-30 05:26] LABS: PHOSPHORUS 8.7 mg/dL (2.5-4.9); POTASSIUM 4.8 mmol/L (3.5-5.1)
[2018-09-30 05:29] LABS: CREATININE 10.9 mg/dL (0.5-1.5)
[2018-09-30] MEDS: INSULIN HUMULIN R 100 UNIT/ML 3ML SQ SCH ×3 (07:41→16:30)
[2018-09-30] MEDS: CALCIUM ACETATE 667 MG CAPSULE PO SCH ×3 (08:00→17:00)
[2018-09-30 08:16] VITALS: BP 129/72
[2018-09-30] MEDS: ZOSYN 3.375GM+NS 50ML 50 ML IV SCH (08:23)
[2018-09-30 12:00] VITALS: BP 124/84
[2018-09-30] MEDS: ASPIRIN 81 MG EC TAB PO SCH (13:48)
[2018-09-30] MEDS: FOLIC ACID/VITAMIN B COMP W-C 1 MG CAP/TAB PO SCH (13:48)
[2018-09-30] MEDS: CLOPIDOGREL BISULFATE 75 MG TAB PO SCH (13:48)
[2018-09-30] MEDS: FAMOTIDINE/PF 20 MG/2 ML VIAL IV SCH (13:49)
[2018-09-30] MEDS: OXCARBAZEPINE 300 MG TAB PO SCH (13:49)
[2018-09-30] MEDS: BISACODYL 5 MG TABLET.DR PO SCH (13:49)
[2018-09-30 16:00] VITALS: BP 137/71
--- NOTE | 2018-09-30 17:05 | NUR ---
PT D/C PT D/C AT THIS TIME, REPORT CALLED TO UYLI SWANSON, EMS NOTIFIED, D/C INSTRUCTION GIVEN, PT VERBALIZED UNDERSTANDING OF D/C INSTRUCTION, IV TAKEN OFF, EMS PENDING TO FIRE DEPARTMENT MARINE ENGINEER PT.
[2018-10-05] MEDS ORDERED: VANCOMYCIN 1GM+NS 250ML 250 ML IV SCH (09:00)
== END 2018-09-30 18:20 | DRG 474 ==
LOC: EDH 17:31 → EDHIP 21:02 → 3DH 22:52
PROVIDERS: ADMIT Family Medicine; ATTEND Family Medicine
PROC: 0Y6N0ZB Detachment at Left Foot, Partial 2nd Ray, Open Approach (ICD-10-PCS; principal; 2018-09-27 14:52)
PROC: 0QBP0ZZ Excision of Left Metatarsal, Open Approach (ICD-10-PCS; 2018-09-27 14:52)
PROC: 5A1D70Z Performance of Urinary Filtration, Intermittent, Less than 6 Hours Per Day (ICD-10-PCS; 2018-09-28)
PROC: 5A1D70Z Performance of Urinary Filtration, Intermittent, Less than 6 Hours Per Day (ICD-10-PCS; 2018-09-30)
DX: T87.44 Infection of amputation stump, left lower extremity (principal); A41.9 Sepsis, unspecified organism; N18.6 End stage renal disease; A48.0 Gas gangrene; E87.1 Hypo-osmolality and hyponatremia; M86.8X7 Other osteomyelitis, ankle and foot; E11.52 Type 2 diabetes mellitus with diabetic peripheral angiopathy with gangrene; Z68.41 Body mass index [BMI] 40.0-44.9, adult; I12.0 Hypertensive chronic kidney disease with stage 5 chronic kidney disease or end stage renal disease; L02.612 Cutaneous abscess of left foot; L03.116 Cellulitis of left lower limb; E11.69 Type 2 diabetes mellitus with other specified complication; E11.22 Type 2 diabetes mellitus with diabetic chronic kidney disease; D64.9 Anemia, unspecified; E03.9 Hypothyroidism, unspecified; E11.21 Type 2 diabetes mellitus with diabetic nephropathy; E11.621 Type 2 diabetes mellitus with foot ulcer; E11.65 Type 2 diabetes mellitus with hyperglycemia; E66.01 Morbid (severe) obesity due to excess calories; E78.5 Hyperlipidemia, unspecified; F17.200 Nicotine dependence, unspecified, uncomplicated; I25.10 Atherosclerotic heart disease of native coronary artery without angina pectoris; B95.61 Methicillin susceptible Staphylococcus aureus infection as the cause of diseases classified elsewhere; B96.1 Klebsiella pneumoniae [K. pneumoniae] as the cause of diseases classified elsewhere; L97.529 Non-pressure chronic ulcer of other part of left foot with unspecified severity; Z79.4 Long term (current) use of insulin; Z99.2 Dependence on renal dialysis; Z95.1 Presence of aortocoronary bypass graft; Z89.429 Acquired absence of other toe(s), unspecified side; Z86.73 Personal history of transient ischemic attack (TIA), and cerebral infarction without residual deficits; Z88.8 Allergy status to other drugs, medicaments and biological substances; Z83.3 Family history of diabetes mellitus; Z82.5 Family history of asthma and other chronic lower respiratory diseases; Z82.49 Family history of ischemic heart disease and other diseases of the circulatory system; Z82.3 Family history of stroke; Z82.0 Family history of epilepsy and other diseases of the nervous system; Y83.8 Other surgical procedures as the cause of abnormal reaction of the patient, or of later complication, without mention of misadventure at the time of the procedure; Y92.9 Unspecified place or not applicable
CPT/HCPCS: 36415; 71045; 73620; 73718; 80048; 80053; 80074; 82550; 82948; 83605; 84100; 84484; 85025; 85027; 85610; 85651; 85730; 86140; 87070; 87076; 87077; 87186; 87205; 88304; 88311; 90935; 93005; 99291; G0378; J1815; J2001; J2250; J2270; J2543; J2704; J3370; J3490; J7030; J7040

== ENCOUNTER 2018-11-24 20:35 | Inpatient (IN) | payer MEDICARE ==
[~2018-11-24] VITALS: Ht 172.7 cm; Wt 113.9 kg
[~2018-11-24 20:35] MED LIST changes: +BISA5TAB12 PO; -DOCU-275 PO; -FERR324T4 PO; -SULF1TAB3 PO
[2018-11-24] MEDS ORDERED: KETOROLAC TROMETHAMINE 15MG/ML ONE (21:53)
[2018-11-24] MEDS ORDERED: MORPHINE SULFATE 2 MG/ML 1ML SYG ONE (21:54)
[2018-11-24 22:03] LABS: BASOPHILS % (AUTO) 1.1 % (0.0-5.0); EOSINOPHILS % (AUTO) 2.4 % (0.0-8.0); LYMPHOCYTES % (AUTO) 18.5 % (21.0-51.0); MEAN CORPUSCULAR HEMOGLOBIN 26.4 pg (27.0-33.0); MEAN CORPUSCULAR HGB CONC 32.6 g/dL (32.0-36.0); MONOCYTES % (AUTO) 7.7 % (3.0-13.0); NEUTROPHILS % (AUTO) 70.3 % (40.0-77.0); PLATELET COUNT (AUTO) 281 K/uL (130-400); RED CELL DISTRIBUTION WIDTH 16.4 % (11.0-15.5); WHITE BLOOD COUNT (AUTO) 15.6 K/uL (4.8-10.8)
[2018-11-24 22:19] LABS: INR 0.95 (0.85-1.15); PARTIAL THROMBOPLASTIN TIME 27.1 SEC (26.3-35.5)
[2018-11-24 22:34] LABS: ALBUMIN 3.5 g/dL (3.5-5.0); BILIRUBIN,TOTAL 0.3 mg/dL (0.2-1.0); CRP QUANTITATIVE 49.4 mg/L (0.00-9.0); TOTAL PROTEIN, SERUM 8.2 g/dL (6.0-8.3)
[2018-11-24 22:36] LABS: CREATININE 9.3 mg/dL (0.5-1.5)
[2018-11-24 23:12] LABS: ERYTHROCYTE SEDIMENTATION RATE 47 MM/HR (0-20)
[2018-11-24] MEDS ORDERED: ZOSYN 3.375GM+NS 50ML 50 ML IV ONE (23:31)
[2018-11-24] MEDS ORDERED: VANCOMYCIN 1GM+NS 250ML 500 ML IV ONE (23:32)
[2018-11-25] MEDS ORDERED: HYDRALAZINE HCL 20 MG/ML VIAL IV PRN (00:15)
[2018-11-25] MEDS ORDERED: VANCOMYCIN PROTOCOL PER PHARMACY IV SCH (00:15)
[2018-11-25] MEDS ORDERED: ONDANSETRON HCL 4 MG/2 ML VIAL IVP PRN (00:15)
[2018-11-25] MEDS ORDERED: DEXTROSE 50%-WATER 50 ML DISP.SYRIN IV PRN (00:15)
[2018-11-25] MEDS ORDERED: GLUCAGON 1MG KIT 1 MG ML IM PRN (00:15)
[2018-11-25] MEDS ORDERED: ONDANSETRON HCL 4 MG/2 ML VIAL ONE (02:01)
[2018-11-25] MEDS ORDERED: MORPHINE SULFATE 4 MG/1ML SYG ONE ×2 (02:01→08:01)
[2018-11-25] MEDS: INSULIN R PO SS1 SQ SCH ×4 (07:30→22:29)
[2018-11-25] MEDS ORDERED: HEPARIN SODIUM 5000UNIT/ML 1ML VIAL ONE (08:01)
[2018-11-25 08:21] LABS: BASOPHILS % (AUTO) 0.8 % (0.0-5.0); EOSINOPHILS % (AUTO) 3.8 % (0.0-8.0); LYMPHOCYTES % (AUTO) 12.1 % (21.0-51.0); MEAN CORPUSCULAR HEMOGLOBIN 26.5 pg (27.0-33.0); MEAN CORPUSCULAR HGB CONC 32.2 g/dL (32.0-36.0); MEAN CORPUSCULAR VOLUME 82.2 fL (79-99); MONOCYTES % (AUTO) 10.6 % (3.0-13.0); NEUTROPHILS % (AUTO) 72.7 % (40.0-77.0); PLATELET COUNT (AUTO) 254 K/uL (130-400); RED BLOOD CELL COUNT(AUTO) 4.37 MIL/uL (4.50-6.20); RED CELL DISTRIBUTION WIDTH 16.5 % (11.0-15.5); WHITE BLOOD COUNT (AUTO) 11.3 K/uL (4.8-10.8)
[2018-11-25] MEDS ORDERED: COMPOUND IV REFRIGERATED 1 EACH IVSOLN MISC PRN (08:30)
[2018-11-25 08:45] LABS: ALBUMIN 3.3 g/dL (3.5-5.0); BILIRUBIN,TOTAL 0.4 mg/dL (0.2-1.0); POTASSIUM 4.5 mmol/L (3.5-5.1); TOTAL PROTEIN, SERUM 7.9 g/dL (6.0-8.3)
[2018-11-25 08:50] LABS: CREATININE 9.5 mg/dL (0.5-1.5)
[2018-11-25] MEDS: HEPARIN SODIUM 5000UNIT/ML 1ML VIAL SQ SCH ×3 (09:00→22:26)
[2018-11-25] MEDS ORDERED: VANCOMYCIN 1.75 GM in SODIUM CHLORIDE 0.9% 250 ML IV SCH (09:00)
[2018-11-25 16:15] VITALS: BP 152/88
[2018-11-25] MEDS: MORPHINE SULFATE 4 MG/1ML SYG IVP PRN (18:21)
--- NOTE | 2018-11-25 18:30 | NUR ---
Pt was admitted with a wound vac from home, but when I removed it had a strong foul odor, he said that he believes that it is because the battery of the wound vac in ER and the suction was off for approx 4 hrs. Wet to dry applied and pending for Dr Marie to see pt
--- NOTE | 2018-11-25 20:25 | NUR ---
Dr Marie is here to see pt and informed him of the foul odor of the wound and that the wound vac was left off, he said it is fine because he will take a look at it
[2018-11-25 20:28] VITALS: BP 126/71
[2018-11-25] MEDS: ATORVASTATIN CALCIUM 10 MG TABLET PO SCH (22:22)
[2018-11-25] MEDS ORDERED: FAMO20TA8 PO (22:42)
[2018-11-25 23:49] VITALS: BP 132/73
[2018-11-26] VITALS (20 sets, daily range): BP systolic 85–181; BP diastolic 36–92
[2018-11-26 05:28] LABS: EOSINOPHILS % (AUTO) 4.8 % (0.0-8.0); HEMATOCRIT 34.1 % (42-54); LYMPHOCYTES % (AUTO) 15.1 % (21.0-51.0); MEAN CORPUSCULAR HEMOGLOBIN 27.1 pg (27.0-33.0); MEAN CORPUSCULAR HGB CONC 32.9 g/dL (32.0-36.0); MEAN CORPUSCULAR VOLUME 82.3 fL (79-99); MONOCYTES % (AUTO) 10.3 % (3.0-13.0); NEUTROPHILS % (AUTO) 68.8 % (40.0-77.0); PLATELET COUNT (AUTO) 228 K/uL (130-400); RED BLOOD CELL COUNT(AUTO) 4.14 MIL/uL (4.50-6.20); RED CELL DISTRIBUTION WIDTH 16.2 % (11.0-15.5); WHITE BLOOD COUNT (AUTO) 10.7 K/uL (4.8-10.8)
[2018-11-26 05:38] LABS: MAGNESIUM 2.5 mg/dL (1.80-2.40); PHOSPHORUS 6.1 mg/dL (2.5-4.9); POTASSIUM 5.1 mmol/L (3.5-5.1)
[2018-11-26 05:39] LABS: CREATININE 8.2 mg/dL (0.5-1.5)
[2018-11-26] MEDS: INSULIN R PO SS1 SQ SCH ×4 (07:18→22:11)
[2018-11-26] MEDS: MORPHINE SULFATE 4 MG/1ML SYG IVP PRN ×4 (08:25→23:59)
[2018-11-26] MEDS: ASPIRIN 81 MG EC TAB PO SCH (09:00)
[2018-11-26] MEDS: BISACODYL 5 MG TABLET.DR PO SCH (09:00)
[2018-11-26] MEDS: FOLIC ACID/VITAMIN B COMP W-C 1 MG CAP/TAB PO SCH (09:00)
[2018-11-26] MEDS: CLOPIDOGREL BISULFATE 75 MG TAB PO SCH (09:00)
[2018-11-26] MEDS: HEPARIN SODIUM 5000UNIT/ML 1ML VIAL SQ SCH ×2 (09:00→20:11)
[2018-11-26] MEDS ORDERED: MIDAZOLAM HCL 1 MG/ML 2ML VIAL ONE (13:11)
[2018-11-26] MEDS ORDERED: FENTANYL CITRATE PF 50 MCG/1 ML 2ML VIAL ONE ×2 (13:12→13:47)
[2018-11-26] MEDS ORDERED: BUPIVACAINE/PF 0.5% 10ML VIAL ONE (13:17)
[2018-11-26] MEDS ORDERED: LIDOCAINE HCL 1% 20 ML VIAL ONE (13:17)
--- NOTE | 2018-11-26 15:00 | NUR ---
post op report received. pt tolerated left TMA well. arrival to floor awake,alert oreinted and pain free. post op vitals started per protocol. pt denies any needs and denies any pain. dressing to left foot dry and intact
[2018-11-26] MEDS: ZOSYN 3.375GM+NS 50ML 50 ML IV SCH (20:18)
[2018-11-26] MEDS: ATORVASTATIN CALCIUM 10 MG TABLET PO SCH (20:18)
[2018-11-27 04:00] VITALS: BP 114/67
[2018-11-27] MEDS: MORPHINE SULFATE 4 MG/1ML SYG IVP PRN ×3 (04:34→12:15)
[2018-11-27] MEDS: INSULIN R PO SS1 SQ SCH ×4 (06:14→22:45)
[2018-11-27 06:23] LABS: BASOPHILS % (AUTO) 0.5 % (0.0-5.0); EOSINOPHILS % (AUTO) 4.7 % (0.0-8.0); HEMATOCRIT 31.8 % (42-54); LYMPHOCYTES % (AUTO) 14.4 % (21.0-51.0); MEAN CORPUSCULAR HEMOGLOBIN 26.9 pg (27.0-33.0); MEAN CORPUSCULAR HGB CONC 32.7 g/dL (32.0-36.0); MEAN CORPUSCULAR VOLUME 82.1 fL (79-99); MONOCYTES % (AUTO) 10.6 % (3.0-13.0); NEUTROPHILS % (AUTO) 69.8 % (40.0-77.0); PLATELET COUNT (AUTO) 250 K/uL (130-400); RED BLOOD CELL COUNT(AUTO) 3.87 MIL/uL (4.50-6.20); WHITE BLOOD COUNT (AUTO) 12.3 K/uL (4.8-10.8)
[2018-11-27 06:42] LABS: MAGNESIUM 2.7 mg/dL (1.80-2.40); POTASSIUM 4.9 mmol/L (3.5-5.1)
[2018-11-27 06:55] LABS: CREATININE 10.3 mg/dL (0.5-1.5)
[2018-11-27 07:54] VITALS: BP 104/70
[2018-11-27] MEDS: BISACODYL 5 MG TABLET.DR PO SCH (08:44)
[2018-11-27] MEDS: FOLIC ACID/VITAMIN B COMP W-C 1 MG CAP/TAB PO SCH (08:44)
[2018-11-27] MEDS: CLOPIDOGREL BISULFATE 75 MG TAB PO SCH (08:45)
[2018-11-27] MEDS: ASPIRIN 81 MG EC TAB PO SCH (08:45)
[2018-11-27] MEDS: HEPARIN SODIUM 5000UNIT/ML 1ML VIAL SQ SCH ×2 (08:46→21:00)
[2018-11-27 10:57] VITALS: BP 92/60
[2018-11-27] MEDS: ZOSYN 3.375GM+NS 50ML 50 ML IV SCH ×2 (11:04→22:31)
[2018-11-27 15:52] VITALS: BP 94/71
[2018-11-27] MEDS: HYDROMORPHONE 1 MG/1 ML AMP IVP PRN ×2 (16:14→22:32)
[2018-11-27] MEDS: IPRATROPIUM/ALBUTEROL SULFATE 3 ML SOLUTION IH PRN (18:53)
--- NOTE | 2018-11-27 18:56 | NUR ---
cm note met with pt and agreeable to [facility] for iv antibiotics, wound care, and rehab. choice letter obtained and referral faxed to Tabitha with [facility] pending eval. still pending picc placement.
[2018-11-27 20:00] VITALS: BP 125/72
--- NOTE | 2018-11-27 21:35 | NUR ---
SHOWER TONE REGULATOR WAS ABOUT TO GIVE PT'S DUE MEDS BUT IS IN THE SHOWER AT THIS TIME. WILL LET PT FINISH.
--- NOTE | 2018-11-27 22:30 | NUR ---
MEDS SHIFT ASSESSMENT DONE, PLEASE REFER TO CHART. DUE MEDS ADMINISTERED, TOLERATED WELL. PT QUESTIONED THAT HOME MEDS NOT BEING ADMINISTERED WHILE HE IS ADMITTED. ASSURED PT THAT MEDS WILL BE LOOKED INTO AND LINING STAMPER ORAL SURGEON WILL BE INFORMED. Addendum: 11/28/18 at 0236 by ROMAIN BEATTY RN RN Amended: Links added.
[2018-11-27] MEDS: ATORVASTATIN CALCIUM 10 MG TABLET PO SCH (22:31)
--- NOTE | 2018-11-27 23:25 | NUR ---
PLUG MACHINE OPERATOR PAGED PLUG MACHINE OPERATOR MODERN AND CONTEMPORARY ART CURATOR, HANNAH TRIVEDI, AND INFORMED OF PT'S REQUEST FOR PSYCHE HOME MEDS. READ TO PLUG MACHINE OPERATOR OF MD ORDERS REGARDING HOME MEDS. PLUG MACHINE OPERATOR STATED SHE WILL NOT MAKE ANY CHANGES AT THIS TIME SINCE SHE CAN NOT BE IN THE HOSPITAL TO RE-ASSESS PT'S CONDITION. FURTHER STATED THAT HOME MEDS CAN BE REVIEWED BY MD IN AM ROUNDS. PT MADE AWARE OF PLUG MACHINE OPERATOR'S ORDER. PT IS UPSET DEMANDING TO TALK TO THE INSURANCE COMPLIANCE ANALYST. RESOURCE NURSE MADE AWARE BUT STATED SHE CAN NOT DO ANYTHING ABOUT HOME MED ORDERS AND WILL NOT TALK TO PT AT THIS TIME. PT THEN WENT AHEAD AND TOOK HIS OWN HOME MEDS.
[2018-11-28] VITALS: BP 128/70
--- NOTE | 2018-11-28 02:00 | NUR ---
RESOURCE RESOURCE NURSE VERIFIED IF ORDER FOR PICC LINE PLACEMENT WAS RECEIVED AND SCHEDULED. FURTHER INFORMED RESOURCE THAT PT STILL WANTING TO TALK TO HER. RESOURCE NURSE STATED TO DIRECT PT'S COMPLAINTS TO DIRECTOR IN THE AM.
[2018-11-28] MEDS: HYDROMORPHONE 1 MG/1 ML AMP IVP PRN ×5 (03:23→18:52)
--- NOTE | 2018-11-28 03:23 | NUR ---
PAIN PT CALLS FOR PAIN MEDICATIONS. CLAIMS OF PAINS ON HIS LEFT LEG. CONSENT FOR PICC LINE PLACEMENT AND REFUSAL FOR HEPARIN ADMINISTRATION SIGNED BY PT AND WITNESSED BY HOUSEKEEPING ASSOCIATE. FORMS PLACED IN CHART. DILAUDID IV GIVEN. KEPT RESTED AND COMFORTABLE IN BED. CALL LIGHT WITHIN REACH. WILL RE-ASSESS PT.
[2018-11-28 04:00] VITALS: BP 107/59
[2018-11-28] MEDS: IPRATROPIUM/ALBUTEROL SULFATE 3 ML SOLUTION IH PRN ×2 (05:10→19:19)
--- NOTE | 2018-11-28 06:00 | NUR ---
ROUNDS PT RESTING WELL, NO DISTRESS NOTED. NO COMPLAINTS VERBALIZED. KEPT RESTED IN BED. FOR MORE CARE.
[2018-11-28 06:22] LABS: BASOPHILS % (AUTO) 0.6 % (0.0-5.0); EOSINOPHILS % (AUTO) 4.4 % (0.0-8.0); HEMATOCRIT 30.9 % (42-54); LYMPHOCYTES % (AUTO) 16.4 % (21.0-51.0); MEAN CORPUSCULAR HEMOGLOBIN 26.8 pg (27.0-33.0); MEAN CORPUSCULAR HGB CONC 32.5 g/dL (32.0-36.0); MEAN CORPUSCULAR VOLUME 82.4 fL (79-99); MONOCYTES % (AUTO) 9.7 % (3.0-13.0); NEUTROPHILS % (AUTO) 68.9 % (40.0-77.0); NUCLEATED RED BLOOD CELLS 0.1 % (0.0-0.19); PLATELET COUNT (AUTO) 232 K/uL (130-400); RED BLOOD CELL COUNT(AUTO) 3.76 MIL/uL (4.50-6.20); WHITE BLOOD COUNT (AUTO) 11.9 K/uL (4.8-10.8)
[2018-11-28 06:37] LABS: INR 0.93 (0.85-1.15); PROTHROMBIN TIME 9.8 SEC (9.6-11.6)
[2018-11-28] MEDS: INSULIN R PO SS1 SQ SCH ×3 (06:50→16:29)
[2018-11-28 06:51] LABS: MAGNESIUM 2.8 mg/dL (1.80-2.40); PHOSPHORUS 9.9 mg/dL (2.5-4.9)
[2018-11-28 06:58] LABS: CREATININE 12.1 mg/dL (0.5-1.5)
[2018-11-28] MEDS: FOLIC ACID/VITAMIN B COMP W-C 1 MG CAP/TAB PO SCH (07:54)
[2018-11-28] MEDS: CLOPIDOGREL BISULFATE 75 MG TAB PO SCH (07:54)
[2018-11-28] MEDS: BISACODYL 5 MG TABLET.DR PO SCH (07:54)
[2018-11-28] MEDS: ASPIRIN 81 MG EC TAB PO SCH (07:56)
[2018-11-28 08:08] VITALS: BP 101/52
[2018-11-28] MEDS: HEPARIN SODIUM 5000UNIT/ML 1ML VIAL SQ SCH (09:00)
--- NOTE | 2018-11-28 09:00 | NUR ---
cm note met with patient and states is in agreemetn for [facility]. referal faxcaron and cristiano to come and evaluate. pt states can go via van transport. Addendum: 11/28/18 at 1525 by WALLY SALDIVAR CM Amended: Links added.
--- NOTE | 2018-11-28 11:35 | NUR ---
PATIENT S/P HEMODIALYSIS PROCEDURE 1.7L REMOVED. PATIENT TOLERATED WELL WITH NO SIGNS OF DISTRESS NOTED. VITAL SIGNS OF 98.2 - 82 - 20 - 118/58. PRESSURE DRESSING TO KALYN DRY AND INTACT.
[2018-11-28] MEDS: ZOSYN 3.375GM+NS 50ML 50 ML IV SCH (11:39)
[2018-11-28 11:49] VITALS: BP 136/69
[2018-11-28] MEDS ORDERED: LACTULOSE 20 GM/30 ML UDCUP PO SCH (13:00)
[2018-11-28] MEDS ORDERED: LACTULOSE 20 GM/30 ML UDCUP PO PRN (13:00)
--- NOTE | 2018-11-28 14:10 | NUR ---
[facility] consult Unable to assess patient due to picc line placement in progress. Patient is being followed by Dr. Marie for wound care; no further [facility] recommendations are required.
--- NOTE | 2018-11-28 14:34 | NUR ---
PICC LINE PLACEMENT DONE BY MATILDA CARRILLO (STORE STOCKER).
--- NOTE | 2018-11-28 15:25 | NUR ---
cm note nurse updated pt accepted at [facility]. per cristiano. nurse updated.
[2018-11-28 16:00] VITALS: BP 117/55
[2018-11-28] MEDS ORDERED: CALCIUM ACETATE 667 MG CAPSULE PO SCH (17:00)
--- NOTE | 2018-11-28 18:45 | NUR ---
DISCHARGE PATIENT GIVEN DISCHARGE INSTRUCTIONS VIA TEACH BACK. 18G PIV TO RAC DISCONTINUED, TIP INTACT. PICC LINE PLACED TODAY TO JOHN, MAY USE PICC LINE. TELE PACK REMOVED AND RETURNED TO TELEMETRY. PATIENT TO CONTINUE ON ZOSYN IV X 4 WEEKS AT [facility]. REPORT GIVEN TO JERI DON. ARIAN MADE AWARE DILAUDID WAS DISCONTINUED AND NO OTHER PAIN MED WAS PRESCRIBED AT THIS TIME. SPOKE TO SYDNEY GRISSOM NP (BEN[place]MARK), PER ANTONIO GRIMES CALL DR. KIRK WILSON FOR PAIN MEDICATION ORDERS. REPORT GIVEN TO ARIAN AND VOICED UNDERSTANDING. WOUND CARE TO LEFT FOOT TO BE PERFORMED DAILY/PRN. FOLLOW UP APPOINTMENTS TO BE MADE FOR DR. TRIVEDI, DR. SHARMA AND PCP. PATIENT STABLE AT THIS TIME. PATIENT PENDING TRANSPORTER FROM [facility] V[facility]QUEZ RN MADE AWARE.
--- NOTE | 2018-11-28 18:45 | NUR ---
DR. TRIVEDI PRESENT FOR DRESSING CHANGE TO LEFT FOOT. RADHA DRAIN REMOVED. [facility] NURSE TO CHANGE DRESSING DAILY/PRN. REPORT GIVEN TO JERI DON AT [facility].
[2018-11-28] MEDS ORDERED: VENLAFAXINE HCL XR 37.5 MG CAP PO SCH (21:00)
[2018-11-28] MEDS ORDERED: OXCARBAZEPINE 300 MG TAB PO SCH (21:00)
[2018-11-28] MEDS ORDERED: HYDROXYZINE HCL 25 MG TABLET PO PRN (21:00)
[2018-11-28] MEDS ORDERED: OLANZAPINE 5 MG TAB PO SCH (21:00)
[2018-11-29 08:12] LABS: HEPATITIS A ANTIBODY IGM Negative (Negative); HEPATITIS B CORE IGM Negative (Negative); HEPATITIS Bs ANTIGEN SCREEN P Negative (Negative)
== END 2018-11-28 20:20 | DRG 474 ==
LOC: EDH 20:35 → EDHIP 23:58 → 4CH 11-25 15:54
PROVIDERS: ADMIT Internal Medicine Critical Care Medicine; ATTEND Internal Medicine Critical Care Medicine
PROC: 5A1D70Z Performance of Urinary Filtration, Intermittent, Less than 6 Hours Per Day (ICD-10-PCS; 2018-11-25)
PROC: 0Y6N0Z0 Detachment at Left Foot, Complete, Open Approach (ICD-10-PCS; principal; 2018-11-26 13:16)
PROC: 02HV33Z Insertion of Infusion Device into Superior Vena Cava, Percutaneous Approach (ICD-10-PCS; 2018-11-28)
PROC: 5A1D70Z Performance of Urinary Filtration, Intermittent, Less than 6 Hours Per Day (ICD-10-PCS; 2018-11-28)
DX: T87.44 Infection of amputation stump, left lower extremity (principal); N18.6 End stage renal disease; L03.116 Cellulitis of left lower limb; I13.2 Hypertensive heart and chronic kidney disease with heart failure and with stage 5 chronic kidney disease, or end stage renal disease; L02.612 Cutaneous abscess of left foot; M86.172 Other acute osteomyelitis, left ankle and foot; I25.10 Atherosclerotic heart disease of native coronary artery without angina pectoris; E11.621 Type 2 diabetes mellitus with foot ulcer; L97.529 Non-pressure chronic ulcer of other part of left foot with unspecified severity; E11.22 Type 2 diabetes mellitus with diabetic chronic kidney disease; G47.30 Sleep apnea, unspecified; J44.9 Chronic obstructive pulmonary disease, unspecified; E78.5 Hyperlipidemia, unspecified; I50.9 Heart failure, unspecified; F31.9 Bipolar disorder, unspecified; E11.21 Type 2 diabetes mellitus with diabetic nephropathy; E11.51 Type 2 diabetes mellitus with diabetic peripheral angiopathy without gangrene; D64.9 Anemia, unspecified; Y83.5 Amputation of limb(s) as the cause of abnormal reaction of the patient, or of later complication, without mention of misadventure at the time of the procedure; E11.69 Type 2 diabetes mellitus with other specified complication; E66.01 Morbid (severe) obesity due to excess calories; K59.00 Constipation, unspecified; F19.90 Other psychoactive substance use, unspecified, uncomplicated; Z95.1 Presence of aortocoronary bypass graft; Z89.422 Acquired absence of other left toe(s); Z89.439 Acquired absence of unspecified foot; Z99.2 Dependence on renal dialysis; Y92.89 Other specified places as the place of occurrence of the external cause; Z68.38 Body mass index [BMI] 38.0-38.9, adult
CPT/HCPCS: 36415; 71045; 73218; 73630; 73700; 73718; 80048; 80053; 80074; 82550; 82948; 83605; 83735; 84100; 85025; 85610; 85651; 85730; 86140; 87040; 87070; 87076; 87077; 87186; 87205; 90935; 93926; 93971; 94640; 94664; 97039; C1894; G0378; J1170; J1644; J1815; J1885; J2250; J2270; J2405; J2543; J3010; J3370; J3490; J7030

== ENCOUNTER 2018-12-05 12:36 | Inpatient (IN) | payer MEDICARE ==
[~2018-12-05] VITALS: Ht 172.7 cm; Wt 123.6 kg
[~2018-12-05 12:36] MED LIST changes: +FAMO20TA8 PO
[2018-12-05 13:48] LABS: BASOPHILS % (AUTO) 0.8 % (0.0-5.0); EOSINOPHILS % (AUTO) 2.7 % (0.0-8.0); HEMATOCRIT 26.5 % (42-54); LYMPHOCYTES % (AUTO) 12.1 % (21.0-51.0); MEAN CORPUSCULAR HEMOGLOBIN 26.9 pg (27.0-33.0); MEAN CORPUSCULAR HGB CONC 33.1 g/dL (32.0-36.0); MEAN CORPUSCULAR VOLUME 81.1 fL (79-99); MONOCYTES % (AUTO) 6.4 % (3.0-13.0); PLATELET COUNT (AUTO) 290 K/uL (130-400); RED BLOOD CELL COUNT(AUTO) 3.26 MIL/uL (4.50-6.20); RED CELL DISTRIBUTION WIDTH 15.8 % (11.0-15.5); WHITE BLOOD COUNT (AUTO) 13.9 K/uL (4.8-10.8)
[2018-12-05 13:50] LABS: CREATININE 5.4 mg/dL (0.5-1.5); POTASSIUM 3.8 mmol/L (3.5-5.1)
[2018-12-05 14:05] LABS: INR 1.01 (0.85-1.15); PROTHROMBIN TIME 10.6 SEC (9.6-11.6)
[2018-12-05] MEDS ORDERED: ZOSYN 3.375GM+NS 50ML 50 ML IV ONE (15:55)
[2018-12-05] MEDS: ZOSYN 3.375GM+NS 50ML 50 ML IV SCH (16:00)
[2018-12-05] MEDS: CALCIUM ACETATE 667 MG CAPSULE PO SCH (17:00)
[2018-12-05] MEDS ORDERED: CALCIUM ACETATE 667 MG CAPSULE PO ONE (17:43)
[2018-12-05] MEDS ORDERED: INSULIN HUMULIN R 100 UNIT/ML 3ML ONE ×2 (17:43→21:54)
[2018-12-05] MEDS ORDERED: MORPHINE SULFATE 2 MG/ML 1ML SYG ONE (18:44)
[2018-12-05] MEDS: INSULIN GLARGINE 100 UNITS/ML 10 ML VIAL SQ SCH (21:00)
[2018-12-05] MEDS: INSULIN HUMULIN R 100 UNIT/ML 3ML SQ SCH (21:00)
[2018-12-05] MEDS ORDERED: FAMOTIDINE 20MG TAB 20 MG TAB ONE (21:53)
[2018-12-05 22:30] VITALS: BP 159/77
[2018-12-05] MEDS: HYDROCODONE/ACETAMINOPHEN 5/325 MG TAB PO PRN (22:46)
[2018-12-06] VITALS (18 sets, daily range): BP systolic 116–169; BP diastolic 36–116
[2018-12-06] MEDS: MORPHINE SULFATE 2 MG/ML 1ML SYG IV PRN ×2 (01:08→14:09)
[2018-12-06] MEDS: ZOSYN 3.375GM+NS 50ML 50 ML IV SCH ×2 (04:00→16:24)
[2018-12-06 06:25] LABS: BASOPHILS % (AUTO) 1.1 % (0.0-5.0); EOSINOPHILS % (AUTO) 3.4 % (0.0-8.0); HEMATOCRIT 25.9 % (42-54); LYMPHOCYTES % (AUTO) 18.4 % (21.0-51.0); MEAN CORPUSCULAR HEMOGLOBIN 26.2 pg (27.0-33.0); MEAN CORPUSCULAR HGB CONC 32.3 g/dL (32.0-36.0); MEAN CORPUSCULAR VOLUME 81.3 fL (79-99); MONOCYTES % (AUTO) 9.6 % (3.0-13.0); NEUTROPHILS % (AUTO) 67.5 % (40.0-77.0); PLATELET COUNT (AUTO) 253 K/uL (130-400); RED BLOOD CELL COUNT(AUTO) 3.18 MIL/uL (4.50-6.20); RED CELL DISTRIBUTION WIDTH 15.5 % (11.0-15.5); WHITE BLOOD COUNT (AUTO) 14.8 K/uL (4.8-10.8)
[2018-12-06 06:43] LABS: ALBUMIN 2.8 g/dL (3.5-5.0); BILIRUBIN,TOTAL 0.4 mg/dL (0.2-1.0); CREATININE 7.3 mg/dL (0.5-1.5); PHOSPHORUS 5.1 mg/dL (2.5-4.9); POTASSIUM 3.9 mmol/L (3.5-5.1); TOTAL PROTEIN, SERUM 7.6 g/dL (6.0-8.3)
[2018-12-06] MEDS: INSULIN HUMULIN R 100 UNIT/ML 3ML SQ SCH ×4 (07:30→21:00)
[2018-12-06] MEDS: CALCIUM ACETATE 667 MG CAPSULE PO SCH ×3 (08:00→16:24)
[2018-12-06] MEDS: HYDROCODONE/ACETAMINOPHEN 5/325 MG TAB PO PRN ×2 (08:01→23:35)
[2018-12-06] MEDS ORDERED: LISI-617 PO (08:47)
[2018-12-06] MEDS ORDERED: OMEP40CA13 PO (08:47)
[2018-12-06] MEDS ORDERED: ATOR10 PO (08:47)
[2018-12-06] MEDS ORDERED: LACT10SO9 PO (08:47)
[2018-12-06] MEDS ORDERED: HUM10VIA SQ (08:47)
[2018-12-06] MEDS ORDERED: DOCU-116 PO (08:47)
[2018-12-06] MEDS ORDERED: FAMOTIDINE 20MG TAB 20 MG TAB PO SCH (09:00)
[2018-12-06] MEDS: FAMOTIDINE 20MG TAB 20 MG TAB PO SCH (09:00)
--- NOTE | 2018-12-06 12:13 | NUR ---
DCP CM met with pt discussed dc plans. Pt is semi-independent, currently admitted from [facility]. Pt has a walker. DC plan back to [facility], HARRISON signed. Sister able to assist with transportation and needs as necessary. CM to cont to follow up. Addendum: 12/06/18 at 1214 by CHRIS MUNROE LVN CM Amended: Links added.
--- NOTE | 2018-12-06 15:06 | NUR ---
CM note: [place] reacceptance Spoke to Rober Madera w/[facility]. Pt has reacceptance. EMS filled out, pending to be faxed w/current date once pt ready to DC. Primary nurse aware. CM to cont to follow up.
[2018-12-06] MEDS ORDERED: PROPOFOL 10 MG/ML 20ML VIAL IV ONE ×3 (18:01→19:50)
[2018-12-06] MEDS ORDERED: LIDOCAINE PF 2% 5ML ABBOJECT ONE (18:01)
[2018-12-06] MEDS ORDERED: FENTANYL CITRATE PF 50 MCG/1 ML 2ML VIAL ONE (18:01)
[2018-12-06] MEDS ORDERED: MIDAZOLAM HCL 1 MG/ML 2ML VIAL ONE (18:03)
[2018-12-06] MEDS ORDERED: LIDOCAINE HCL 1% 20 ML VIAL ONE (19:15)
[2018-12-06] MEDS ORDERED: BUPIVACAINE/PF 0.5% 30ML VIAL ONE (19:15)
[2018-12-06] MEDS: INSULIN GLARGINE 100 UNITS/ML 10 ML VIAL SQ SCH (21:00)
[2018-12-07] VITALS (7 sets, daily range): BP systolic 89–135; BP diastolic 47–72
[2018-12-07] MEDS: ZOSYN 3.375GM+NS 50ML 50 ML IV SCH (04:35)
[2018-12-07 05:48] LABS: BASOPHILS % (AUTO) 0.9 % (0.0-5.0); EOSINOPHILS % (AUTO) 3.2 % (0.0-8.0); HEMATOCRIT 22.4 % (42-54); LYMPHOCYTES % (AUTO) 15.2 % (21.0-51.0); MEAN CORPUSCULAR HEMOGLOBIN 26.5 pg (27.0-33.0); MEAN CORPUSCULAR VOLUME 80.2 fL (79-99); MONOCYTES % (AUTO) 9.8 % (3.0-13.0); NEUTROPHILS % (AUTO) 70.9 % (40.0-77.0); PLATELET COUNT (AUTO) 237 K/uL (130-400); RED BLOOD CELL COUNT(AUTO) 2.79 MIL/uL (4.50-6.20); RED CELL DISTRIBUTION WIDTH 15.9 % (11.0-15.5)
--- NOTE | 2018-12-07 06:00 | NUR ---
Notified Jenny MOREL regarding patient's hematocrit and hemoglobin of 7.4 and 22.4 and that patient is a little tachycardiac with a heart rate of 114. And that there is blood ready for him if he needs it. She ordered to recheck H&H in 6 hours which is already placed, will monitor patient closely
[2018-12-07 06:30] LABS: PHOSPHORUS 6.2 mg/dL (2.5-4.9); POTASSIUM 4.3 mmol/L (3.5-5.1)
[2018-12-07 06:34] LABS: CREATININE 9.4 mg/dL (0.5-1.5)
[2018-12-07] MEDS: INSULIN HUMULIN R 100 UNIT/ML 3ML SQ SCH ×4 (06:56→21:30)
[2018-12-07] MEDS: FAMOTIDINE 20MG TAB 20 MG TAB PO SCH (08:17)
[2018-12-07] MEDS: CALCIUM ACETATE 667 MG CAPSULE PO SCH ×3 (08:17→17:00)
[2018-12-07] MEDS: MORPHINE SULFATE 2 MG/ML 1ML SYG IV PRN ×3 (08:18→21:17)
[2018-12-07 11:22] LABS: HEMATOCRIT 20.2 % (42-54)
[2018-12-07] MEDS ORDERED: SODIUM CHLORIDE 0.9% 250 ML IV ONE (12:28)
[2018-12-07] MEDS ORDERED: EPOETIN ALFA 10,000 UNIT/ML VIAL SQ SCH (13:30)
[2018-12-07] MEDS ORDERED: PHARMACY COMMUNICATION MISC SCH (13:30)
[2018-12-07] MEDS: HYDROCODONE/ACETAMINOPHEN 5/325 MG TAB PO PRN (15:54)
[2018-12-07 16:19] LABS: HEMATOCRIT 25.6 % (42-54)
[2018-12-07] MEDS: INSULIN GLARGINE 100 UNITS/ML 10 ML VIAL SQ SCH (21:30)
--- NOTE | 2018-12-07 23:11 | NUR ---
Patient took own home medications which I told him not take anything until i get a hold of the MD or COKE PRODUCTION HEATER who is construction engineering manager for tonight. Went to page Jenny Vilchis who is construction engineering manager for tonight and went back to the room to inform the patient that i already paged the Hospitalist but patient informed me that he already took his own medications. Educated him again that we need a doctors order for us to continue his home medications and that he is not supposed to take his own medications. Still pending call back from Hospitalists. Will monitor patient closely.
[2018-12-08] VITALS (8 sets, daily range): BP systolic 97–144; BP diastolic 33–80
[2018-12-08] MEDS: ZOSYN 3.375GM+NS 50ML 50 ML IV SCH ×2 (04:53→17:43)
[2018-12-08 05:32] LABS: HEMATOCRIT 23.7 % (42-54); MEAN CORPUSCULAR HEMOGLOBIN 26.9 pg (27.0-33.0); MEAN CORPUSCULAR HGB CONC 32.9 g/dL (32.0-36.0); MEAN CORPUSCULAR VOLUME 81.6 fL (79-99); PLATELET COUNT (AUTO) 249 K/uL (130-400); RED BLOOD CELL COUNT(AUTO) 2.91 MIL/uL (4.50-6.20); RED CELL DISTRIBUTION WIDTH 15.5 % (11.0-15.5); WHITE BLOOD COUNT (AUTO) 14.7 K/uL (4.8-10.8)
[2018-12-08] MEDS: MORPHINE SULFATE 2 MG/ML 1ML SYG IV PRN ×3 (05:40→19:39)
[2018-12-08 05:43] LABS: BAND NEUTROPHILS % (MANUAL) 2 % (0-2); EOSINOPHILS % (MANUAL) 1 % (1-6); LYMPHOCYTES % (MANUAL) 18 % (22-44); MAN.DIFF COMMENT-IMPRESSION MANUAL DIFFERENTIAL; MONOCYTES % (MANUAL) 5 % (2-9); SEGMENTED NEUTROPHILS % 74 % (40-70)
[2018-12-08 05:44] LABS: PLATELET MORPHOLOGY COMMENT ADEQUATE
[2018-12-08 06:02] LABS: POTASSIUM 4.3 mmol/L (3.5-5.1)
[2018-12-08 06:15] LABS: CREATININE 8.2 mg/dL (0.5-1.5)
[2018-12-08] MEDS: INSULIN HUMULIN R 100 UNIT/ML 3ML SQ SCH ×4 (06:49→21:33)
[2018-12-08] MEDS: CALCIUM ACETATE 667 MG CAPSULE PO SCH ×3 (08:00→17:00)
[2018-12-08 08:11] LABS: HEPATITIS A ANTIBODY IGM Negative (Negative); HEPATITIS B CORE IGM Negative (Negative); HEPATITIS Bs ANTIGEN SCREEN P Negative (Negative)
[2018-12-08] MEDS: FAMOTIDINE 20MG TAB 20 MG TAB PO SCH (09:41)
[2018-12-08 14:56] LABS: HEMATOCRIT 21.4 % (42-54)
[2018-12-08] MEDS: INSULIN GLARGINE 100 UNITS/ML 10 ML VIAL SQ SCH (21:32)
[2018-12-09 03:45] VITALS: BP 153/66
[2018-12-09] MEDS: ZOSYN 3.375GM+NS 50ML 50 ML IV SCH ×2 (04:01→16:56)
[2018-12-09 04:14] LABS: BASOPHILS % (AUTO) 0.9 % (0.0-5.0); EOSINOPHILS % (AUTO) 4.2 % (0.0-8.0); HEMATOCRIT 21.1 % (42-54); LYMPHOCYTES % (AUTO) 16.5 % (21.0-51.0); MEAN CORPUSCULAR HGB CONC 33.5 g/dL (32.0-36.0); MEAN CORPUSCULAR VOLUME 80.5 fL (79-99); MONOCYTES % (AUTO) 9.8 % (3.0-13.0); NEUTROPHILS % (AUTO) 68.6 % (40.0-77.0); PLATELET COUNT (AUTO) 271 K/uL (130-400); RED BLOOD CELL COUNT(AUTO) 2.62 MIL/uL (4.50-6.20); RED CELL DISTRIBUTION WIDTH 15.3 % (11.0-15.5); WHITE BLOOD COUNT (AUTO) 15.3 K/uL (4.8-10.8)
[2018-12-09 04:27] LABS: POTASSIUM 4.5 mmol/L (3.5-5.1)
[2018-12-09 04:45] LABS: CREATININE 10.4 mg/dL (0.5-1.5)
[2018-12-09] MEDS: INSULIN HUMULIN R 100 UNIT/ML 3ML SQ SCH ×3 (05:46→16:30)
[2018-12-09 08:00] VITALS: BP 115/63
[2018-12-09] MEDS: CALCIUM ACETATE 667 MG CAPSULE PO SCH ×3 (08:00→16:56)
[2018-12-09] MEDS: FAMOTIDINE 20MG TAB 20 MG TAB PO SCH (09:33)
[2018-12-09] MEDS: MORPHINE SULFATE 2 MG/ML 1ML SYG IV PRN ×2 (09:37→19:16)
[2018-12-09 11:00] VITALS: BP 95/55
--- NOTE | 2018-12-09 13:15 | NUR ---
discharge pending veinous doppler
[2018-12-09] MEDS ORDERED: SODIUM CHLORIDE 0.9% 500ML 500 ML IV ONE (14:51)
--- NOTE | 2018-12-09 15:20 | NUR ---
PATIENT GIVEN BLOOD I UNIT DURING DIALYSIS H/H 7.1 /21.1. REMOVED 4 LITERS OF FLUID OVER 3 HOURS B/P 117/51 P 96 RR 16 T 97.8
[2018-12-09 16:00] VITALS: BP 100/33
--- NOTE | 2018-12-09 16:40 | NUR ---
PATIENT C/O'S PAIN OF 8 TO LEFT FOOT MEDICATED WITH MORPHINE 2 MG IVP
[2018-12-09] MEDS ORDERED: ACET1TAB12 PO (17:25)
--- NOTE | 2018-12-09 18:28 | NUR ---
MED REC FAXES [facility] ( 2 ATTEMPTED TO CALL REPORT BUT NURSE WAS BUSY CALLED AGAIN AT 1730 AND WAS ABLE TO GIVE REPORT. EMS THEN NOTIFIED OF PATIENT WAS READY FOR TRANSFER. DISCHARGE INSTRUCTIONS GIVEN TO PATIENT AND HE VERBALIZED UNDERSTANDING NO QUESTIONS OF CONCERNS AT THIS TIME . WILL REMOVE WOUND VAC WHEN EMS ARRIVALS FOR TRANSFER.
[2018-12-09 19:30] VITALS: BP 134/60
--- NOTE | 2018-12-09 21:15 | NUR ---
EMS HERE TO TRANSPORT PATIENT , PATIENT LOADED AND LEFT WITH EMS
== END 2018-12-09 21:15 | DRG 907 ==
LOC: EDH 12:36 → EDHIP 15:16 → 4CH 21:29
PROVIDERS: ADMIT Internal Medicine; ATTEND Internal Medicine
PROC: 0QBP0ZX Excision of Left Metatarsal, Open Approach, Diagnostic (ICD-10-PCS; 2018-12-06)
PROC: 0QBM0ZX Excision of Left Tarsal, Open Approach, Diagnostic (ICD-10-PCS; 2018-12-06)
PROC: 0Y9J0ZZ Drainage of Left Lower Leg, Open Approach (ICD-10-PCS; principal; 2018-12-06 18:15)
PROC: 0KBW0ZZ Excision of Left Foot Muscle, Open Approach (ICD-10-PCS; 2018-12-06 18:15)
PROC: 30233N1 Transfusion of Nonautologous Red Blood Cells into Peripheral Vein, Percutaneous Approach (ICD-10-PCS; 2018-12-07)
PROC: 5A1D70Z Performance of Urinary Filtration, Intermittent, Less than 6 Hours Per Day (ICD-10-PCS; 2018-12-07)
PROC: 5A1D70Z Performance of Urinary Filtration, Intermittent, Less than 6 Hours Per Day (ICD-10-PCS; 2018-12-09)
DX: L76.32 Postprocedural hematoma of skin and subcutaneous tissue following other procedure (principal); N18.6 End stage renal disease; T87.40 Infection of amputation stump, unspecified extremity; Z68.41 Body mass index [BMI] 40.0-44.9, adult; D62 Acute posthemorrhagic anemia; I12.0 Hypertensive chronic kidney disease with stage 5 chronic kidney disease or end stage renal disease; M86.8X7 Other osteomyelitis, ankle and foot; T87.89 Other complications of amputation stump; E11.22 Type 2 diabetes mellitus with diabetic chronic kidney disease; E11.21 Type 2 diabetes mellitus with diabetic nephropathy; E78.5 Hyperlipidemia, unspecified; E66.01 Morbid (severe) obesity due to excess calories; E11.51 Type 2 diabetes mellitus with diabetic peripheral angiopathy without gangrene; G47.30 Sleep apnea, unspecified; I25.10 Atherosclerotic heart disease of native coronary artery without angina pectoris; I99.8 Other disorder of circulatory system; J44.9 Chronic obstructive pulmonary disease, unspecified; E11.69 Type 2 diabetes mellitus with other specified complication; E11.65 Type 2 diabetes mellitus with hyperglycemia; Y83.5 Amputation of limb(s) as the cause of abnormal reaction of the patient, or of later complication, without mention of misadventure at the time of the procedure; Z99.2 Dependence on renal dialysis; Z82.5 Family history of asthma and other chronic lower respiratory diseases; Z82.49 Family history of ischemic heart disease and other diseases of the circulatory system; Z83.3 Family history of diabetes mellitus; Z82.3 Family history of stroke; Z82.0 Family history of epilepsy and other diseases of the nervous system; Z88.1 Allergy status to other antibiotic agents; Z88.8 Allergy status to other drugs, medicaments and biological substances; Z79.899 Other long term (current) drug therapy; Z79.82 Long term (current) use of aspirin; Z79.4 Long term (current) use of insulin; Z89.432 Acquired absence of left foot; Z95.1 Presence of aortocoronary bypass graft; Z91.19 Patient's noncompliance with other medical treatment and regimen; Z86.73 Personal history of transient ischemic attack (TIA), and cerebral infarction without residual deficits
CPT/HCPCS: 36415; 36430; 73718; 80048; 80053; 80074; 82948; 84100; 85014; 85018; 85025; 85610; 85730; 86850; 86900; 86901; 86922; 88304; 88311; 90935; 93971; G0378; J0885; J1815; J2001; J2250; J2543; J2704; J3010; J3490; J7030; J7040; P9016

== ENCOUNTER 2019-11-08 12:29 | Inpatient (IN) | payer MEDICARE ==
[~2019-11-08] VITALS: Ht 172.7 cm; Wt 133.1 kg
[~2019-11-08 12:29] MED LIST changes: +ACET1TAB12 PO; -ASPI-555 PO; +ASPI-556 PO; +ATOR10 PO; +DOCU-116 PO; -FAMO20TA8 PO; +LACT10SO9 PO; +LISI-617 PO; -LOSA50TA64 PO; -METO-408 PO; +OMEP40CA13 PO; -PRAV20TA4 PO
[2019-11-08 12:44] LABS: BASOPHILS % (AUTO) 0.6 % (0.0-5.0); EOSINOPHILS % (AUTO) 2.2 % (0.0-8.0); HEMATOCRIT 32.5 % (42-54); LYMPHOCYTES % (AUTO) 19.1 % (21.0-51.0); MEAN CORPUSCULAR HEMOGLOBIN 26.7 pg (27.0-33.0); MEAN CORPUSCULAR HGB CONC 32.3 g/dL (32.0-36.0); MEAN CORPUSCULAR VOLUME 82.7 fL (79-99); NEUTROPHILS % (AUTO) 64.7 % (40.0-77.0); PLATELET COUNT (AUTO) 226 K/uL (130-400); RED BLOOD CELL COUNT(AUTO) 3.93 MIL/uL (4.50-6.20); RED CELL DISTRIBUTION WIDTH 16.2 % (11.0-15.5); WHITE BLOOD COUNT (AUTO) 11.6 K/uL (4.8-10.8)
[2019-11-08 12:59] LABS: INR 0.99 (0.85-1.15); PARTIAL THROMBOPLASTIN TIME 30.2 SEC (26.3-35.5); PROTHROMBIN TIME 10.7 SEC (9.6-11.6)
[2019-11-08 13:04] LABS: BILIRUBIN,DIRECT 0.1 mg/dL (0.0-0.3); BILIRUBIN,TOTAL 0.3 mg/dL (0.2-1.0); CREATININE 5.5 mg/dL (0.5-1.5); POTASSIUM 3.2 mmol/L (3.5-5.1); TOTAL PROTEIN, SERUM 7.2 g/dL (6.0-8.3)
[2019-11-08] MEDS ORDERED: KETOROLAC TROMETHAMINE 15MG/ML ONE (14:39)
[2019-11-08] MEDS ORDERED: DIAZEPAM 5 MG/ML 2 ML SYG ONE (14:40)
[2019-11-08] MEDS ORDERED: NITROGLYCERIN 0.4 MG SL TAB SL PRN (15:30)
[2019-11-08] MEDS ORDERED: HYDROCODONE/ACETAMINOPHEN 5/325 MG TAB PO PRN (15:30)
[2019-11-08] MEDS ORDERED: LACTULOSE 20 GM/30 ML UDCUP PO PRN (15:30)
[2019-11-08] MEDS ORDERED: ONDANSETRON HCL 4 MG/2 ML VIAL IV PRN (15:30)
[2019-11-08] MEDS ORDERED: ACETAMINOPHEN 325 MG TAB PO PRN (15:30)
[2019-11-08] MEDS: NITROGLYCERIN 1GM/1 INCH PACKET TD SCH ×2 (15:45→21:45)
[2019-11-08] MEDS ORDERED: ASPIRIN 325MG EC TAB 325 MG TABLET.DR PO SCH (15:45)
[2019-11-08] MEDS ORDERED: MORPHINE SULFATE 2 MG/ML 1ML SYG IVP PRN (15:45)
[2019-11-08] MEDS ORDERED: ATORVASTATIN CALCIUM 40 MG TABLET PO SCH (15:45)
[2019-11-08] MEDS: INSULIN HUMULIN R 100 UNIT/ML 3ML SQ SCH ×2 (16:30→21:00)
[2019-11-08] MEDS: ATORVASTATIN CALCIUM 20 MG TABLET PO SCH (21:00)
[2019-11-08] MEDS: HEPARIN SODIUM 5000UNIT/ML 1ML VIAL SQ SCH (21:00)
[2019-11-08] MEDS ORDERED: HEPARIN SODIUM 5000UNIT/ML 1ML VIAL ONE (21:02)
[2019-11-08] MEDS ORDERED: FAMOTIDINE/PF 20 MG/2 ML VIAL IV ONE (21:03)
[2019-11-08] MEDS ORDERED: ATORVASTATIN CALCIUM 20 MG TABLET ONE (21:03)
[2019-11-08] MEDS ORDERED: NITROGLYCERIN 1GM/1 INCH PACKET TD ONE (21:03)
[2019-11-08] MEDS ORDERED: INSULIN HUMULIN R 100 UNIT/ML 3ML ONE (21:04)
[2019-11-08 23:44] VITALS: BP 148/59
[2019-11-09] VITALS (8 sets, daily range): BP systolic 116–164; BP diastolic 51–101
[2019-11-09] MEDS: NITROGLYCERIN 1GM/1 INCH PACKET TD SCH ×4 (03:22→20:17)
[2019-11-09] MEDS ORDERED: VENL-63 PO (04:57)
[2019-11-09] MEDS ORDERED: ISOS10TA8 PO (04:57)
[2019-11-09] MEDS ORDERED: FLUT1DIS3 IH (04:57)
[2019-11-09] MEDS ORDERED: CLOP75TA32 PO (04:57)
[2019-11-09] MEDS ORDERED: OXCA300T28 PO (04:57)
[2019-11-09] MEDS ORDERED: FOLI0.8T22 PO (04:57)
[2019-11-09] MEDS ORDERED: BISA5TAB12 PO (04:57)
[2019-11-09] MEDS ORDERED: METO-391 PO (04:57)
[2019-11-09] MEDS ORDERED: CALC667C10 PO (04:57)
[2019-11-09] MEDS ORDERED: ATOR20TA65 PO (04:57)
[2019-11-09] MEDS ORDERED: OLAN2.5T29 PO (04:57)
[2019-11-09] MEDS ORDERED: FAMO20TA8 PO (04:57)
[2019-11-09] MEDS ORDERED: AEC81 PO (04:57)
[2019-11-09 05:13] LABS: BASOPHILS % (AUTO) 0.7 % (0.0-5.0); EOSINOPHILS % (AUTO) 3.5 % (0.0-8.0); HEMATOCRIT 35.5 % (42-54); LYMPHOCYTES % (AUTO) 26.9 % (21.0-51.0); MEAN CORPUSCULAR HEMOGLOBIN 26.2 pg (27.0-33.0); MEAN CORPUSCULAR HGB CONC 31.5 g/dL (32.0-36.0); MEAN CORPUSCULAR VOLUME 82.9 fL (79-99); MONOCYTES % (AUTO) 12.9 % (3.0-13.0); PLATELET COUNT (AUTO) 237 K/uL (130-400); RED BLOOD CELL COUNT(AUTO) 4.28 MIL/uL (4.50-6.20); RED CELL DISTRIBUTION WIDTH 16.3 % (11.0-15.5); WHITE BLOOD COUNT (AUTO) 9.8 K/uL (4.8-10.8)
[2019-11-09 05:50] LABS: ALBUMIN 3.7 g/dL (3.5-5.0); BILIRUBIN,TOTAL 0.4 mg/dL (0.2-1.0); POTASSIUM 5.1 mmol/L (3.5-5.1); TOTAL PROTEIN, SERUM 8.4 g/dL (6.0-8.3)
[2019-11-09 05:53] LABS: CREATININE 8.2 mg/dL (0.5-1.5)
[2019-11-09] MEDS: INSULIN HUMULIN R 100 UNIT/ML 3ML SQ SCH ×4 (06:41→21:00)
[2019-11-09] MEDS ORDERED: FOLIC ACID/VITAMIN B COMP W-C 1 CAP TAB PO SCH (09:00)
[2019-11-09] MEDS ORDERED: CLOPIDOGREL BISULFATE 75 MG TAB PO SCH (09:00)
[2019-11-09] MEDS ORDERED: ASPIRIN 81 MG EC TAB PO SCH (09:00)
[2019-11-09] MEDS ORDERED: FAMOTIDINE/PF 20 MG/2 ML VIAL IV SCH (09:00)
[2019-11-09] MEDS: HEPARIN SODIUM 5000UNIT/ML 1ML VIAL SQ SCH ×3 (10:38→21:15)
[2019-11-09] MEDS ORDERED: REGADENOSON 0.4 MG/5 ML PF SYG IVP SCH (11:00)
--- NOTE | 2019-11-09 17:53 | NUR ---
Made call to Dr. Mccoy regarding pt negative results/stress test.
[2019-11-09] MEDS ORDERED: OXCARBAZEPINE 300 MG TAB PO SCH (21:00)
[2019-11-09] MEDS ORDERED: VENLAFAXINE HCL XR 37.5 MG CAP PO SCH (21:00)
[2019-11-09] MEDS ORDERED: FLUTICASONE/VILANTEROL 1 EACH AER.POW.BA IH SCH (21:00)
[2019-11-09] MEDS: CALCIUM ACETATE 667 MG CAPSULE PO SCH (21:00)
[2019-11-09] MEDS ORDERED: OLANZAPINE 5 MG TAB PO SCH (21:00)
[2019-11-09] MEDS ORDERED: METOPROLOL SUCCINATE 50 MG TAB.SR.24H PO SCH (21:00)
[2019-11-09] MEDS ORDERED: ATORVASTATIN CALCIUM 20 MG TABLET PO SCH (21:00)
[2019-11-09] MEDS ORDERED: ISOSORBIDE MONONITRATE 20 MG TABLET PO SCH (21:00)
[2019-11-09] MEDS: ATORVASTATIN CALCIUM 20 MG TABLET PO SCH (21:15)
[2019-11-10] MEDS: NITROGLYCERIN 1GM/1 INCH PACKET TD SCH (02:53)
[2019-11-10 03:46] VITALS: BP 135/72
[2019-11-10 04:23] LABS: BASOPHILS % (AUTO) 0.7 % (0.0-5.0); EOSINOPHILS % (AUTO) 3.7 % (0.0-8.0); LYMPHOCYTES % (AUTO) 23.3 % (21.0-51.0); MEAN CORPUSCULAR HEMOGLOBIN 26.1 pg (27.0-33.0); MEAN CORPUSCULAR HGB CONC 31.8 g/dL (32.0-36.0); MEAN CORPUSCULAR VOLUME 81.9 fL (79-99); MONOCYTES % (AUTO) 12.8 % (3.0-13.0); NEUTROPHILS % (AUTO) 58.6 % (40.0-77.0); PLATELET COUNT (AUTO) 231 K/uL (130-400); RED BLOOD CELL COUNT(AUTO) 4.03 MIL/uL (4.50-6.20); RED CELL DISTRIBUTION WIDTH 15.7 % (11.0-15.5); WHITE BLOOD COUNT (AUTO) 8.7 K/uL (4.8-10.8)
[2019-11-10 04:55] LABS: ALBUMIN 3.4 g/dL (3.5-5.0); BILIRUBIN,TOTAL 0.3 mg/dL (0.2-1.0); PHOSPHORUS 7.5 mg/dL (2.5-4.9); POTASSIUM 5.7 mmol/L (3.5-5.1); TOTAL PROTEIN, SERUM 7.9 g/dL (6.0-8.3)
[2019-11-10] MEDS: INSULIN HUMULIN R 100 UNIT/ML 3ML SQ SCH (05:44)
[2019-11-10 05:48] LABS: CREATININE 10.7 mg/dL (0.5-1.5)
--- NOTE | 2019-11-10 07:30 | NUR ---
ASSESSMENT ENCOUNTERED PT IN SEMI DONALDSON'S POSITION, A&OX3, CALM COOPERATIVE AND DOES NOT APPEAR TO BE IN ANY DISTRESS NOR ANY NEURO DEFICITS PRESENT. PT DENIES PAIN, SOB, NAUSEA. PT IS ABLE TO PIVOT WITH NO AFFECTED FOOT INTO WHEELCHAIR. CALL LIGHT WITHIN REACH.
[2019-11-10 08:39] VITALS: BP 163/83
[2019-11-10] MEDS ORDERED: FOLIC ACID/VITAMIN B COMP W-C 1 CAP TAB PO SCH (09:00)
[2019-11-10] MEDS ORDERED: ASPIRIN 81 MG EC TAB PO SCH (09:00)
[2019-11-10] MEDS ORDERED: BISACODYL 5 MG TABLET.DR PO SCH (09:00)
[2019-11-10] MEDS: CALCIUM ACETATE 667 MG CAPSULE PO SCH (11:30)
[2019-11-10 12:11] VITALS: BP 162/82
[2019-11-10] MEDS ORDERED: NITROGLYCERIN 0.4 MG SL TAB SL PRN (12:30)
[2019-11-10] MEDS ORDERED: LIDOCAINE HCL-MPF 1% 2ML VIAL IJ PRN (12:30)
[2019-11-10] MEDS ORDERED: 0.9% SODIUM CHLORIDE 1000 ML IV BAG IV PRN (12:30)
[2019-11-10] MEDS ORDERED: ACETAMINOPHEN 325 MG TAB PO PRN (12:30)
[2019-11-10] MEDS ORDERED: SODIUM CHLORIDE 0.9% 1000ML 1,000 ML IV PRN (12:30)
[2019-11-10] MEDS ORDERED: ALBUMIN (HUMAN) 25% 100 ML IV ONE (13:42)
--- NOTE | 2019-11-10 17:00 | NUR ---
DISCHARGE INSTRUCTIONS GIVEN, REPORT CALLED TO REY GREY OF [facility], PIV REMOVED AND INTACT, DISCHARGED VIA [facility]
--- NOTE | 2019-11-10 17:00 | NUR ---
[facility], MARY WAS NOT AWARE PT WAS FROM [facility]- 9INITIAL ASSESSMENT WAS DELAYED, SPOKETO PATIENT AT BEDSIDE WELL KNOWN TO MARY FROM OTHER ADMISSION- LIVES ALONE, HAS DME, HD MWF,FAMILY CLOSE BUT CURRENTLY AT [facility] FOR REHAB S/P TMA. WILL RETURN FOR WOUND CARE AND REHAB. CALL TO DR. MONGE AND MED REC/ORDER COMPLETED, MATILDA SIMONS ADVISED Addendum: 11/10/19 at 1953 by RICHARD DIAS RN CM Amended: Links added.
--- NOTE | 2019-11-10 18:00 | NUR ---
ALL THINGS SET TO GO BACK TO [facility] INCLUDING MED REC DONE VIA TELEPHONE ORDER AND COVID TEST AND FORM SENT SENT. [facility] DID NOT SAY NEEDED NEW PASSR, BUT WILL FOLLOW UP WEDNESDAY IF NEEDED WILL GO BY [facility]NA [facility]IE [facility]LE[facility] IN [place] Addendum: 11/10/19 at 1950 by RICHARD DIAS RN CM Amended: Links added.
--- NOTE | 2019-11-11 17:00 | NUR ---
DISCHARGE INSTRUCTIONS GIVEN, REPORT GIVEN TO REY GREY OF [facility], PIV REMOVED AND INTACT, DISCHARGED VIA [facility].
== END 2019-11-10 18:35 | DRG 311 ==
LOC: EDH 12:29 → EDHIP 12:30 → 4CH 23:36
PROVIDERS: ADMIT Internal Medicine; ATTEND Internal Medicine
PROC: 5A1D70Z Performance of Urinary Filtration, Intermittent, Less than 6 Hours Per Day (ICD-10-PCS; principal; 2019-11-10)
DX: I24.9 Acute ischemic heart disease, unspecified (principal); N18.6 End stage renal disease; I50.32 Chronic diastolic (congestive) heart failure; Z68.41 Body mass index [BMI] 40.0-44.9, adult; I13.2 Hypertensive heart and chronic kidney disease with heart failure and with stage 5 chronic kidney disease, or end stage renal disease; I12.0 Hypertensive chronic kidney disease with stage 5 chronic kidney disease or end stage renal disease; E11.22 Type 2 diabetes mellitus with diabetic chronic kidney disease; E66.01 Morbid (severe) obesity due to excess calories; I34.0 Nonrheumatic mitral (valve) insufficiency; E11.51 Type 2 diabetes mellitus with diabetic peripheral angiopathy without gangrene; E78.5 Hyperlipidemia, unspecified; E11.649 Type 2 diabetes mellitus with hypoglycemia without coma; Z20.828 Contact with and (suspected) exposure to other viral communicable diseases; Z99.2 Dependence on renal dialysis; Z95.1 Presence of aortocoronary bypass graft; Z89.422 Acquired absence of other left toe(s); Z86.73 Personal history of transient ischemic attack (TIA), and cerebral infarction without residual deficits; Z83.3 Family history of diabetes mellitus; Z82.5 Family history of asthma and other chronic lower respiratory diseases; Z82.49 Family history of ischemic heart disease and other diseases of the circulatory system; Z82.3 Family history of stroke; Z82.0 Family history of epilepsy and other diseases of the nervous system; Z88.1 Allergy status to other antibiotic agents; Z88.8 Allergy status to other drugs, medicaments and biological substances; Z79.899 Other long term (current) drug therapy; Z79.82 Long term (current) use of aspirin; I25.10 Atherosclerotic heart disease of native coronary artery without angina pectoris
CPT/HCPCS: 36415; 71045; 78452; 80048; 80053; 80076; 82550; 82948; 83036; 84100; 84484; 85025; 85610; 85730; 87426; 90935; 93005; 93017; 93306; 93970; 96374; A9500; G0378; J1644; J1815; J1885; J2785; J3360; J3490; P9046; U0003

== ENCOUNTER 2020-01-07 16:47 | Emergency (ER) | payer MEDICARE ==
[~2020-01-07 16:47] MED LIST changes: +AEC81 PO; -ASPI-556 PO; +ATOR20TA65 PO; +FAMO20TA8 PO; +FLUT1DIS3 IH; +FOLI0.8T22 PO; +ISOS10TA8 PO; +METO-391 PO; +VENL-63 PO
[2020-01-07] MEDS ORDERED: ONDANSETRON HCL 4 MG/2 ML VIAL ONE (17:25)
[2020-01-07] MEDS ORDERED: MORPHINE SULFATE 4 MG/1ML SYG ONE (17:25)
[2020-01-07 17:31] LABS: BASOPHILS % (AUTO) 0.5 % (0.0-5.0); EOSINOPHILS % (AUTO) 2.1 % (0.0-8.0); HEMATOCRIT 29.2 % (42-54); MEAN CORPUSCULAR HEMOGLOBIN 25.7 pg (27.0-33.0); MEAN CORPUSCULAR HGB CONC 30.8 g/dL (32.0-36.0); MEAN CORPUSCULAR VOLUME 83.4 fL (79-99); MONOCYTES % (AUTO) 7.3 % (3.0-13.0); NEUTROPHILS % (AUTO) 76.4 % (40.0-77.0); PLATELET COUNT (AUTO) 269 K/uL (130-400); RED CELL DISTRIBUTION WIDTH 16.2 % (11.0-15.5)
[2020-01-07 17:46] LABS: INR 1.04 (0.85-1.15); PARTIAL THROMBOPLASTIN TIME 30.5 SEC (26.3-35.5); PROTHROMBIN TIME 11.2 SEC (9.6-11.6)
[2020-01-07 17:48] LABS: ALBUMIN 3.5 g/dL (3.5-5.0); BILIRUBIN,TOTAL 0.5 mg/dL (0.2-1.0); POTASSIUM 5.3 mmol/L (3.5-5.1); TOTAL PROTEIN, SERUM 8.6 g/dL (6.0-8.3)
[2020-01-07 17:51] LABS: CREATININE 10.7 mg/dL (0.5-1.5)
[2020-01-07] MEDS ORDERED: SODIUM CHLORIDE 0.9% 1000ML 1,000 ML IV ONE (18:04)
[2020-01-07] MEDS ORDERED: CLINDAMYCIN 600 MG/D5% WATER 50 ML IV ONE (18:04)
[2020-01-07] MEDS ORDERED: INSULIN HUMULIN R 100 UNIT/ML 3ML ONE (18:05)
== END 2020-01-07 21:23 | disposition home or self-care (01) ==
LOC: EDH 16:47
DX: L03.116 Cellulitis of left lower limb (principal); E13.65 Other specified diabetes mellitus with hyperglycemia; E66.01 Morbid (severe) obesity due to excess calories; Z20.828 Contact with and (suspected) exposure to other viral communicable diseases; I12.0 Hypertensive chronic kidney disease with stage 5 chronic kidney disease or end stage renal disease; E11.22 Type 2 diabetes mellitus with diabetic chronic kidney disease; N18.6 End stage renal disease; I25.10 Atherosclerotic heart disease of native coronary artery without angina pectoris; Z88.1 Allergy status to other antibiotic agents; Z88.8 Allergy status to other drugs, medicaments and biological substances; Z86.73 Personal history of transient ischemic attack (TIA), and cerebral infarction without residual deficits; Z68.41 Body mass index [BMI] 40.0-44.9, adult; Z99.2 Dependence on renal dialysis; Z72.0 Tobacco use; Z98.890 Other specified postprocedural states
CPT/HCPCS: 36415; 71045; 73590; 80053; 82948; 84484; 85025; 85610; 85730; 87040 ×2; 87426; 93005; 93971; 96365; 96375; 99285; J1815; J2270; J2405; J3490; J7030; U0003